=== PATIENT | male | born 1960 | race Caucasian/White ===

== ENCOUNTER 2024-06-15 15:34 | Inpatient (IN) ==
--- NOTE | 2024-06-15 15:39 | ED Triage Note ---
Date of Service June 15, 2024 Provider in Triage Author: Santa Lyons History of Present Illness This patient was briefly evaluated while in triage. An abbreviated physical exam was performed. This patient is a 63-year-old Male who presents to the ED for evaluation sent by PCP BLE pain, toe numbness, right calf muscle "shrinking" x several months Had BLE arterial ultrasounds today at [facility], and was sent in reportedly showed "occlusion" in the RLE Physical Exam GENERAL: NAD CARDIOVASCULAR: RRR RESPIRATORY: CTA Initial orders for labs and / or imaging were placed and patient was placed in the waiting area until a bed is available. Please see further documentation for the full ED course.
[2024-06-15 16:22] LABS: Basophils # (auto) 0.06 K/uL (0.00-0.20); Basophils % (auto) 0.4 %; Eosinophils # (auto) 0.32 K/uL (0.00-0.50); Eosinophils % (auto) 2.4 %; Hematocrit (blood only) 48.4 % (42.0-52.0); Hemoglobin 16.1 g/dl (14.0-18.0); Immature Granulocytes # (auto) 0.06 K/uL (0.01-0.20); Immature Granulocytes % (auto) 0.4 %; Lymphocytes # (auto) 3.27 K/uL (1.20-3.40); Lymphocytes % (auto) 24.4 %; Mean Corpuscular Hgb Conc 33.3 g/dL (32.0-36.0); Mean Corpuscular Volume 87.1 fL (80.0-100.0); Mean Platelet Volume 9.2 fL (9.4-12.4); Monocytes # (auto) 0.89 K/uL (0.11-0.59); Monocytes % (auto) 6.6 %; Neutrophils # (auto) 8.82 K/uL (1.40-6.50); Neutrophils % (auto) 65.8 %; Platelet Count 222 K/uL (130-400); RDW Coefficient of Variation 14.6 % (11.5-14.5); RDW Standard Deviation 46.5 fL (36.4-46.3); Red Blood Count 5.56 M/uL (4.70-6.10); White Blood Count 13.42 K/ul (4.8-10.8)
[2024-06-15 16:31] LABS: Albumin Globulin Ratio 1.2 (0.9-2); Albumin Level 4.7 gm/dl (3.4-5.0); BUN Creatinine Ratio 13.2 (10-20); Bilirubin,Total 0.8 mg/dl (0.2-1.0); Creatinine Clr Calc Pharmacy 105.4 ml/min; Est GFR (African American) 114.1 ml/min; Est GFR (Non-African American) 98.5 ml/min; Globulin 3.8 gm/dl (2.5-4.0); Potassium 4.1 mmol/L (3.5-5.1); Total Protein 8.5 gm/dl (6.0-8.3)
[2024-06-15 16:37] LABS: Troponin I High Sensitivity 8.1 pg/ml (0-20)
[2024-06-15 16:50] LABS: Partial Thromboplastin Time 27 Seconds (21-31); Prothrombin Time 11.2 Seconds (9.0-12.0)
--- NOTE | 2024-06-15 18:29 | Emergency Department Note ---
History of Present Illness General Chief complaint: Referred by Doctor Stated complaint: REF BY DOC, ABNORMAL US, POS BLOOD CLOT Time Seen by Provider: 06/15/24 18:09 Source: patient, RN notes reviewed and old records reviewed (Notes from his ultrasound earlier today) Mode of arrival: ambulatory Limitations: no limitations History of Present Illness Maximum Pain Intensity: 10 This patient is a 63-year-old male who comes in after being sent up from his primary doctor after having a right lower extremity arterial occlusion. He had ultrasound done in [place] which at this point, I do not have access to. He says his symptoms started in March when he was having pain in his right leg when walking in the calf. He says his calf is shrunk since then. He also noticed that he was getting some purple discoloration pain in his left great toe and now in the right great toe. They hurt when he puts the sheets on them. He feels tingly and numb in his legs at times. No systemic complaints he is a smoker. No history of blood clots. No chest pain or shortness of breath or fever chills or abdominal pain or acute back pain. He has had back surgeries in the past. Allergies Allergy/AdvReac Type Severity Reaction Status Date / Time Penicillins Allergy Unknown Verified 06/15/24 19:50 Past Med/Surg History Problem List (Updated 06/15/24 @ 23:33 by Basil Cee MD) Chronic toe pain, bilateral (Acute) Current smoker (Acute) Arterial occlusion, lower extremity (Acute) Tobacco abuse Arterial occlusion, lower extremity Leg pain, right (Acute) Social History Smoking Status: Current every day smoker Tobacco Type: Cigarettes Hx Alcohol Use: Yes Alcohol type: wine Hx Substance Use: No Preferred Language: French Communication Ability: Effective Certified Medication Aide Required: No Beliefs That Will Affect Care: None Current Living Situation: Alone Feels Safe at Home: Yes Safety Concerns: Feels Safe At This Time Assistive Devices: Glasses Immunizations: Past medical historydenies being on blood thinners or having history of blood clots. Social historyhe is a smoker. He is a retired fisherman Review of Systems A total of 10 systems reviewed and were otherwise negative Physical Exam Vital Signs Vital Signs - 24 hr 06/15/24 15:36 06/15/24 18:29 06/15/24 18:29 Temperature 36.9 C Temperature Source Temporal Artery Scan Pulse Rate 87 Pulse Rate [Apical] 70 Pulse Rate from SpO2 Sensor Pulse Rhythm Pulse Rhythm [Apical] Regular Respiratory Rate 20 19 Respiratory Effort / Characteristics Non-Labored Non-Labored Spontaneous Respiratory Depth Normal Normal Respiratory Pattern Regular Blood Pressure 145/95 H 137/97 Blood Pressure [Left Arm] 137/97 Blood Pressure Mean 111 107 Blood Pressure Mean [Left Arm] 110 Pulse Oximetry 94 99 Oxygen Delivery Method Room Air Room Air Sepsis Recent Fever Within 48 Hours No Sepsis New/Unexplained Change in Mental Status No Sepsis Action Taken by Nursing No Action Required 06/15/24 18:30 06/15/24 18:31 06/15/24 18:33 Temperature Temperature Source Pulse Rate 67 70 74 Pulse Rate [Apical] Pulse Rate from SpO2 Sensor 68 Pulse Rhythm Regular Pulse Rhythm [Apical] Respiratory Rate 15 23 Respiratory Effort / Characteristics Respiratory Depth Respiratory Pattern Blood Pressure Blood Pressure [Left Arm] Blood Pressure Mean Blood Pressure Mean [Left Arm] Pulse Oximetry 99 98 Oxygen Delivery Method Room Air Sepsis Recent Fever Within 48 Hours Sepsis New/Unexplained Change in Mental Status Sepsis Action Taken by Nursing 06/15/24 18:51 06/15/24 18:54 06/15/24 19:00 Temperature Temperature Source Pulse Rate 68 70 Pulse Rate [Apical] Pulse Rate from SpO2 Sensor 68 70 Pulse Rhythm Pulse Rhythm [Apical] Respiratory Rate 19 15 Respiratory Effort / Characteristics Respiratory Depth Respiratory Pattern Blood Pressure 134/86 Blood Pressure [Left Arm] Blood Pressure Mean 109 Blood Pressure Mean [Left Arm] Pulse Oximetry 95 97 Oxygen Delivery Method Sepsis Recent Fever Within 48 Hours Sepsis New/Unexplained Change in Mental Status Sepsis Action Taken by Nursing 06/15/24 19:12 Temperature Temperature Source Pulse Rate 63 Pulse Rate [Apical] Pulse Rate from SpO2 Sensor 64 Pulse Rhythm Pulse Rhythm [Apical] Respiratory Rate 17 Respiratory Effort / Characteristics Respiratory Depth Respiratory Pattern Blood Pressure Blood Pressure [Left Arm] Blood Pressure Mean Blood Pressure Mean [Left Arm] Pulse Oximetry 94 Oxygen Delivery Method Sepsis Recent Fever Within 48 Hours Sepsis New/Unexplained Change in Mental Status Sepsis Action Taken by Nursing General: Well developed well nourished [id number] middle-age male in no acute distress, breathing comfortably on room air. Normal speech HEENT: Normal cephalic atraumatic. Pupils are equal round and reactive to light. Extraocular movements are intact. Oropharynx is pink with moist mucous membranes. No swelling of the mouth lips or tongue. Neck: Supple with a midline trachea. No meningeal signs or stiffness, no JVD or bruits. No Stridor. Chest: Clear to auscultation bilaterally. No wheezes or rhonchi. No increased work of breathing. Heart: Regular rate and rhythm without murmurs or gallops. Abdomen: Soft nontender, nondistended without rebound guarding or rigidity. Extremities: No cyanosis clubbing or edema. No calf tenderness or assymetry. He has bluish discoloration of his great toes bilaterally. I do feel palpable pulses. His ankles bilaterally. His toes are tender to palpation on the great toes. There is no skin breakdown or gangrene. Spine/Back. Non tender to palpation. No CVA tenderness Skin: Good turgor without rashes. Neurologic exam: Cranial nerves two through 12 are intact. Motor and sensation are intact and symmetrical throughout. Course Administered Medications Heparin Sodium/Dextrose (Heparin Sodium/Dextrose) 25,000 units in 500 mls @ 28 mls/hr IV .[id number] [facility]; Protocol Stop: 07/15/24 19:59 Last Admin: 06/15/24 20:02 Dose: 1,400 units/hr, 28 mls/hr Documented By: SAMUEL Co-signed By: DIANA Nicotine (Nicotine 21 Mg/24 Hr Tdsy) 1 patch TD QAM [facility] Stop: 07/15/24 20:09 Last Admin: 06/15/24 20:55 Dose: 1 patch Documented By: DIANA Discontinued Medications Aspirin (Aspirin Chew 324 Mg) 324 mg PO NOW STA Stop: 06/15/24 19:35 Last Admin: 06/15/24 19:49 Dose: 324 mg Documented By: SAMUEL Heparin Sodium (Porcine) (Heparin Sod (Porcine) 1000 Unit/Ml) 6,000 units IV NOW ONE Stop: 06/15/24 20:01 Last Admin: 06/15/24 20:03 Dose: 6,000 units Documented By: SAMUEL Co-signed By: DIANA Heparin Sodium/Dextrose (Heparin Iv Adult Wt-Based Standard W/ Initial Bolus Protocol) 1 each IV NOW STA; Protocol Stop: 06/15/24 19:31 Last Admin: 06/15/24 20:04 Dose: 1 each Documented By: SAMUEL Ioversol (Optiray 320 125ml) 118 ml IV ONCE ONE Stop: 06/15/24 20:33 Last Admin: 06/15/24 20:32 Dose: 118 ml Documented By: NALLELY Medical Decision Making Differential Diagnosis Arterial occlusion, infection, claudication, vascular occlusion, DVT Medical Records Attestation: I reviewed the patient's medical records. Home Medications Current Medication List: was personally reviewed by me Laboratory Data Attestation: I reviewed the patient's lab results. 06/15/24 15:47 06/15/24 15:47 Lab Results 06/15/24 Range/Units 15:47 WBC 13.42 H (4.8-10.8) K/ul RBC 5.56 (4.70-6.10) M/uL Hgb 16.1 (14.0-18.0) g/dl Hct 48.4 (42.0-52.0) % MCV 87.1 (80.0-100.0) fL MCH 29.0 (25.0-34.0) pg MCHC 33.3 (32.0-36.0) g/dL RDW Std Deviation 46.5 H (36.4-46.3) fL RDW Coeff of Robert 14.6 H (11.5-14.5) % Plt Count 222 (130-400) K/uL MPV 9.2 L (9.4-12.4) fL Immature Gran % (Auto) 0.4 % Neut % (Auto) 65.8 % Lymph % (Auto) 24.4 % [place] % (Auto) 6.6 % Eos % (Auto) 2.4 % Baso % (Auto) 0.4 % Neut # (Auto) 8.82 H (1.40-6.50) K/uL Lymph # (Auto) 3.27 (1.20-3.40) K/uL [place] # (Auto) 0.89 H (0.11-0.59) K/uL Eos # (Auto) 0.32 (0.00-0.50) K/uL Baso # (Auto) 0.06 (0.00-0.20) K/uL Immature Gran # (Auto) 0.06 (0.01-0.20) K/uL ESR 73 H (0-20) mm/hr PT 11.2 (9.0-12.0) Seconds INR 1.0 (0.9-1.1) APTT 27 (21-31) Seconds PTT Ratio 1.0 Sodium 137 (136-145) mmol/L Potassium 4.1 (3.5-5.1) mmol/L Chloride 100 (98-107) mmol/L Carbon Dioxide 27 (21-32) mmol/L Anion Gap 10 (3-11) BUN 10 (6-23) mg/dl Creatinine 0.76 (0.6-1.4) mg/dl Est Cr Clr Drug Dosing 105.4 ml/min Est GFR ( Amer) 114.1 ml/min Est GFR (Non-Af Amer) 98.5 ml/min BUN/Creatinine Ratio 13.2 (10-20) Glucose 113 H (70-99(Fasting)) mg/dl Calcium 10.0 (8.6-10.3) mg/dl Total Bilirubin 0.8 (0.2-1.0) mg/dl AST 20 (13-39) U/L ALT 22 (7-52) U/L Alkaline Phosphatase 74 (34-104) U/L Troponin I High Sens 8.1 (0-20) pg/ml C-Reactive Protein 0.92 H (0-0.5) mg/dl Total Protein 8.5 H (6.0-8.3) gm/dl Albumin 4.7 (3.4-5.0) gm/dl Globulin 3.8 (2.5-4.0) gm/dl Albumin/Globulin Ratio 1.2 (0.9-2) Procalcitonin < 0.02 (0-0.5) ng/ml ECG Data Attestation: I personally reviewed and interpreted this ECG as follows: Indication: + weakness Rate (beats per minute): 81 Rhythm: + normal sinus ECG Intervals/blocks: + Normal QRS, + Normal QT and + Normal [place] ECG [place]: + Normal ECG ST segments: + Normal ST segments ECG Findings: no PACs or no PVCs Comparison ECG Date: no prior available MDM Narrative This patient comes in as described above. I saw him [place] in the critical pathway [place] to help expedite his care. According to the note there were this patient had an ultrasound today which showed arterial occlusion of the right leg. His symptoms have been going on more subacutely. His toes are bluish bilaterally on the great toes with significant pain he has had claudication type symptoms as well but this does not appear to be an acute thrombosis. His labs show a white count of 13 his EKG does not show any A-fib or arrhythmia he has normal renal function. He is a smoker. When he first presented I did not have access to his ultrasound so I have our sales secretary working on getting a copy of the report as well as the patient check in the portal. We did get a report copy of the report which showed occlusions of the right superficial femoral artery and dorsalis pedis artery and additional areas of dampened flow bilaterally. I did discuss case with Dr. Romero and he does feel the patient needs to be admitted for heparin. I did order the IV heparin bolus and standard protocol. I talked the patient at length about this. He said no recent trauma or surgery no history of GI bleed he is on no blood thinners. [facility], who will see the patient in the ER for further treatment and evaluation. Impression & Plan Arterial occlusion, lower extremity, Leg pain, right, Current smoker, Chronic toe pain, bilateral Discharge Plan Visit Data Chief Complaint: Referred by Doctor Stated Complaint: REF BY DOC, ABNORMAL US, POS BLOOD CLOT ED Provider: Basil Cee Discharge Problem: Arterial occlusion, lower extremity, Leg pain, right, Current smoker, Chronic toe pain, bilateral Patient Disposition: Admitted As Inpatient Discharge Instructions Interventions: ED Discharge Assessment Last Done: 06/15/24 21:18
--- NOTE | 2024-06-15 19:39 | History & Physical Report ---
Date of Service June 15, 2024 Assessment & Plan (1) Arterial occlusion, lower extremity: Plan: Admit to [facility] telemetry alcohol oximetry Currently stable nontoxic-appearing Presented to the ED after outpatient bilateral arterial Dopplers of the lower extremities showed occlusions of the right superficial femoral artery and dorsalis pedis artery along with significant peripheral arterial disease in the bilateral lower extremities Patient has been experienced symptoms for months, has a long history of tobacco abuse The ED spoke with Dr. Romero on-call for vascular surgery, he will evaluate the patient tomorrow morning but recommended admission at this time with initiation of heparin drip Heparin drip was initiated in the ED, gave the patient 324 mg aspirin at the time of admission Will obtain CT of the abdomen pelvis aorta runoff with con for further evaluation Will continue heparin drip and 81 mg aspirin daily tomorrow Vascular surgery consult has been placed Will make n.p.o. at midnight in case of OR tomorrow with Dr. Romero No obvious sign of infection in the bilateral lower extremities at this time, left distal great toe is erythematous and painful, will obtain x-ray of the left foot for further evaluation along with Pro-Ta/ESR/CRP but will hold antibiotics at this time as he has been afebrile Obtain chest x-ray for preoperative clearance Pain control with Tylenol and morphine, as needed Narcan for oversedation/r espiratory depression Heart healthy diet until midnight Heparin drip for DVT prophylaxis AM CBC, CMP, mag, PT/INR, hemoglobin A1c, fasting lipid panel (2) Tobacco abuse: Plan: Approximately 36-year smoking history Patient understands he needs to quit to prevent further complications Will order nicotine patch and gum for now Plan The patient was discussed with Dr. Zaidi at the time of the admission History of Present Illness Chief Complaint: Abnormal outpatient imaging Primary Care Provider: Myles Hopkinswes Ragsdales a 63-year-old male with a past medical history significant for hypertension, tobacco abuse, who presented to the [facility] ED on 06/15/2024 after outpatient bilateral arterial Dopplers revealed findings concerning for acute arterial occlusion in the right lower extremity. Patient remained stable while in the ED. The labs were significant for leukocytosis of 13 with neutrophil predominance of 8. Outpatient bilateral lower extremity arterial Dopplers obtained today (06/15/2024) were read as occlusions of the right superficial femoral artery and dorsalis pedis artery and additional areas of dampened flow bilaterally as described. The need for CTA or conventional angiography should be determined clinically. The ED did speak with Dr. Romero who confirmed that he will see the patient tomorrow and is available for surgical intervention if needed. Dr. Romero recommended starting the patient on anticoagulation overnight until he can evaluate him tomorrow. Prior to admission the patient was ordered to start on heparin drip. Patient was sitting in bed in no acute distress at time of exam. Explains that he has been experiencing bilateral lower extremity paresthesias, pain, and significant pain/cramping with ambulation worsened right lower extremity than left over the past 3 to 6 months. States that his right calf has become significantly smaller than the left over this time as well. Will experience numbness and tingling in the bilateral feet/toes at times. Had been using Tylenol for the pain without improvement. Has smoked approximately a pack per day of cigarettes for the past 36 years, drinks 2 to 3 glasses of wine approximately 3 times a week, denies recreational drug use. States that he was told his cholesterol is high recently but has not started a statin yet. When asked about any prescription medications he states that he is currently not on any as he does not like to take medication. However, he states he will begin medications to prevent further complications of vascular disease. Pain is currently under control at rest. She understands that he may require surgical intervention and that we will obtain additional imaging tonight for further assessment. Denies a history of major bleeding and states that his only medication allergies are to penicillins. He is a full code would want his sister to make medical decisions for him if he cannot make them himself. Please refer to Dr. Zaidi's attestation for any changes to the treatment plan Allergies Allergy/AdvReac Type Severity Reaction Status Date / Time Penicillins Allergy Unknown Verified 06/15/24 19:50 Past Med/Surg History Problem List (Updated 06/15/24 @ 23:33 by Basil Cee MD) Chronic toe pain, bilateral (Acute) Current smoker (Acute) Arterial occlusion, lower extremity (Acute) Tobacco abuse Arterial occlusion, lower extremity Leg pain, right (Acute) Social History Smoking Status: Current every day smoker Tobacco Type: Cigarettes Hx Alcohol Use: Yes Alcohol type: wine Hx Substance Use: No Preferred Language: Malaysian Communication Ability: Effective [place] Required: No Beliefs That Will Affect Care: None Current Living Situation: Alone Feels Safe at Home: Yes Safety Concerns: Feels Safe At This Time Assistive Devices: Glasses Physical Exam Physical Exam: Physical Exam: General: In no acute distress, stated age, nontoxic-appearing HEENT: Normocephalic, atraumatic, no scleral icterus, pupils around round, symmetrical, and reactive to light, moist mucus membranes, poor dentition, trachea midline, no thyromegaly Chest/Pulm: No respiratory distress, symmetrical chest expansion, clear breath sounds throughout Cardiac: RRR, no murmurs noted Abdomen: Negative for ascites and bruising, normoactive bowel sounds, soft, non-tender to palpation throughout Musculoskeletal: Without signs of acute trauma, upper and lower extremities with full ROM, no atrophy, spasticity, or flaccidity > Right calf is approximately half the size of the left due to chronic arterial insufficiency Extremities: Patient with intact left dorsalis pedis and posterior tibial pulses, absent right dorsalis pedis pulse with faint posterior tibial pulse Skin: Skin in the bilateral lower extremities is currently warm without significant pallor > Left great toe with mild erythema on the distal inferior aspect without obvious sign of infection Neuro: Alert and oriented to person, place, month, year, and president, no focal defects, decreased sensation in the bilateral lower extremities Psych: No acute distress, calm and cooperative during the exam Results & Data Results & Data Vital Signs (Past 12 Hours) Vital Signs Temp Pulse Pulse Resp BP BP Pulse Ox 06/15/24 19:12 63 17 94 06/15/24 19:00 134/86 06/15/24 18:54 70 15 97 06/15/24 18:51 68 19 95 06/15/24 18:33 74 23 98 06/15/24 18:31 70 06/15/24 18:30 67 15 99 06/15/24 18:29 137/97 06/15/24 18:29 70 19 137/97 99 06/15/24 15:36 36.9 C 87 20 145/95 H 94 O2 Del Method 06/15/24 19:12 06/15/24 19:00 06/15/24 18:54 06/15/24 18:51 09/18/24 18:33 06/15/24 18:31 06/15/24 18:30 Room Air 06/15/24 18:29 06/15/24 18:29 Room Air 06/15/24 15:36 Room Air Laboratory Results Abnormal lab results 06/15/24 Range/Units 15:47 WBC 13.42 H (4.8-10.8) K/ul RDW Std Deviation 46.5 H (36.4-46.3) fL RDW Coeff of Robert 14.6 H (11.5-14.5) % MPV 9.2 L (9.4-12.4) fL Neut # (Auto) 8.82 H (1.40-6.50) K/uL [place] # (Auto) 0.89 H (0.11-0.59) K/uL Glucose 113 H (70-99(Fasting)) mg/dl Total Protein 8.5 H (6.0-8.3) gm/dl ECG Additional Comments: Normal sinus rhythm without acute ST segment or T wave changes Code Status & VTE Plan Code Status Full code VTE Prophylaxis Plan VTE Prophylaxis will be ordered: Yes Supervising Physician Co-Signing Physician Notes Attending addendum: I have physically seen this patient, have supervised the STAR's activities, and agree with the H&P unless as otherwise noted. Assessment and Plan: Arterial occlusions right lower extremity SFA and dorsalis pedis arteries/peripheral arterial disease and bilateral lower extremities- Patient presented to the emergency department after outpatient testing at an outside hospital revealed the above diagnoses. Patient has a long history of tobacco use Heparin drip standard dosing with bolus per protocol ordered Start aspirin 81 mg daily Order aortic study with runoff Consult vascular surgery Dr. Romero Admit to monitored bed Start empiric atorvastatin 40 mg daily Repeat CBC with differential, chemistry profile, magnesium, PT/INR/PTT, hemoglobin A1c and fasting lipid panel Tobacco abuse- Cessation counseling Nicotine patch PG Care Time/CCT Total # of Minutes Spent Total Time Spent with Patient: Total time spent is greater than 50% in coordination of care (as documented) at patient's floor/unit and/or counseling patient: [place] [address] INT INP/OBS CARE 3/75MIN Patient Type New Medical Decision Making High Complexity Diagnoses Arterial occlusion, lower extremity I70.209 Tobacco abuse Z72.0
[2024-06-15] MEDS ORDERED: HEPARIN SOD (PORCINE) 1000 UNIT/ML IV ONE (19:46)
[2024-06-15] MEDS: ASPIRIN CHEW 324 MG PO STA (19:49)
[2024-06-15] MEDS: HEPARIN SODIUM/DEXTROSE 25,000 UNITS/500 ML BAG IV SCH (20:02)
[2024-06-15] MEDS: HEPARIN SOD (PORCINE) 1000 UNIT/ML IV ONE (20:03)
[2024-06-15] MEDS: Heparin IV Adult Wt-Based Standard w/ INITIAL Bolus Protocol IV STA (20:04)
[2024-06-15] MEDS ORDERED: MoRPHine SULFATE 2 MG/ML CARP IV PRN (20:06)
[2024-06-15] MEDS ORDERED: ACETAMINOPHEN 325 MG TAB PO PRN (20:06)
[2024-06-15] MEDS ORDERED: NICOTINE POLACRILEX 2 MG GUM MT PRN (20:08)
[2024-06-15] MEDS ORDERED: NALOXONE HCL 0.4 MG/1 ML VIAL/CARP IV PRN (20:20)
[2024-06-15] MEDS: OPTIRAY 320 125ml IV ONE (20:32)
[2024-06-15] MEDS: NICOTINE 21 MG/24 HR TDSY TD SCH (20:55)
--- NOTE | 2024-06-15 21:27 | CT Scan Report ---
Exam(s): CTA RUNOFF W/WO (A/P + Pascual Lower Ext) EXAM: CT Angiography Abdomen and Pelvis With Runoff to the Lower Extremities Without and With Intravenous Contrast CLINICAL HISTORY: Reason for exam: RLE artery occlusion on outpatient arterial dopp. TECHNIQUE: Axial computed tomographic angiography images of the abdomen, pelvis and lower extremities without and with intravenous contrast. CTDI is 16. 62 mGy and DLP is 1834.63 mGy-cm. Automated exposure control was utilized for the study. A dose lowering technique was utilized adhering to the principles of ALARA. MIP reconstructed images were created and reviewed. COMPARISON: No relevant prior studies available. FINDINGS: VASCULATURE: Aorta: No acute findings. No abdominal aortic aneurysm. No dissection. Celiac trunk and mesenteric arteries: No acute findings. No occlusion or significant stenosis. Renal arteries: No acute findings. No occlusion or significant stenosis. Right iliac arteries: No acute findings. No occlusion or significant stenosis. Right femoral/popliteal arteries: Occluded right SFA. Occluded right popliteal artery. Right calf/foot arteries: Occluded anterior tibial artery on the right. Two-vessel runoff via the posterior tibial artery and peroneal artery. Left iliac arteries: No acute findings. No occlusion or significant stenosis. Left femoral/popliteal arteries: Mild stenosis throughout the left SFA. Mild stenosis within the left popliteal artery. Left calf/foot arteries: No acute findings. No occlusion or significant stenosis. Lung bases: Unremarkable. No mass. No consolidation. ABDOMEN: Liver: Unremarkable. No mass. Gallbladder and bile ducts: Unremarkable. No calcified stones. No ductal dilation. Pancreas: Unremarkable. No ductal dilation. No mass. Spleen: Unremarkable. No splenomegaly. Adrenals: Unremarkable. No mass. Kidneys and ureters: Unremarkable. No obstructing stones. No hydronephrosis. No solid mass. Stomach and bowel: Unremarkable. No obstruction. No mucosal thickening. PELVIS: Appendix: No findings to suggest acute appendicitis. Bladder: Unremarkable. No stones. No mass. Reproductive: Unremarkable as visualized. ABDOMEN, PELVIS and LOWER EXTREMITIES: Intraperitoneal space: Unremarkable. No significant fluid collection. No free air. Bones/joints: No acute fracture. No dislocation. Soft tissues: Unremarkable. Lymph nodes: Unremarkable. No enlarged lymph nodes. IMPRESSION: 1. Occluded right SFA and popliteal artery. 2. Two-vessel runoff in the right lower extremity. 3. No flow-limiting stenosis or arterial occlusion in the left lower extremity. Electronically signed by: Jacob Boss MD 06/15/24 21:26 PM
[2024-06-15 23:25] LABS: C Reactive Protein 0.92 mg/dl (0-0.5)
[2024-06-16 02:25] LABS: ANTI-Xa, UFH(UnfractionatedHep 0.41 IU/ml (0.3-0.7)
[2024-06-16 05:56] LABS: Basophils # (auto) 0.08 K/uL (0.00-0.20); Basophils % (auto) 0.8 %; Eosinophils # (auto) 0.62 K/uL (0.00-0.50); Eosinophils % (auto) 5.8 %; Hematocrit (blood only) 43.7 % (42.0-52.0); Hemoglobin 14.7 g/dl (14.0-18.0); Immature Granulocytes # (auto) 0.03 K/uL (0.01-0.20); Immature Granulocytes % (auto) 0.3 %; Lymphocytes # (auto) 3.38 K/uL (1.20-3.40); Lymphocytes % (auto) 31.9 %; Mean Corpuscular Hemoglobin 28.9 pg (25.0-34.0); Mean Corpuscular Hgb Conc 33.6 g/dL (32.0-36.0); Mean Corpuscular Volume 85.9 fL (80.0-100.0); Mean Platelet Volume 9.4 fL (9.4-12.4); Monocytes # (auto) 0.77 K/uL (0.11-0.59); Monocytes % (auto) 7.3 %; Neutrophils # (auto) 5.73 K/uL (1.40-6.50); Neutrophils % (auto) 53.9 %; Platelet Count 207 K/uL (130-400); RDW Coefficient of Variation 14.4 % (11.5-14.5); RDW Standard Deviation 45.4 fL (36.4-46.3); Red Blood Count 5.09 M/uL (4.70-6.10); White Blood Count 10.61 K/ul (4.8-10.8)
[2024-06-16 06:10] LABS: Albumin Globulin Ratio 1.2 (0.9-2); Albumin Level 4.1 gm/dl (3.4-5.0); BUN Creatinine Ratio 16.7 (10-20); Bilirubin,Total 0.6 mg/dl (0.2-1.0); Calcium 9.5 mg/dl (8.6-10.3); Chol HDL Ratio 7.4 (0-5); Creatinine Clr Calc Pharmacy 111.2 ml/min; Est GFR (African American) 116.7 ml/min; Est GFR (Non-African American) 100.7 ml/min; Globulin 3.3 gm/dl (2.5-4.0); Magnesium 2.2 mg/dl (1.7-2.4); Potassium 4.1 mmol/L (3.5-5.1); Total Protein 7.4 gm/dl (6.0-8.3)
[2024-06-16 06:19] LABS: ANTI-Xa, UFH(UnfractionatedHep 0.41 IU/ml (0.3-0.7)
--- NOTE | 2024-06-16 06:46 | Electrocardiogram Report ---
Test Reason : Blood Pressure : */* mmHG Vent. Rate : 81 BPM Atrial Rate : 81 BPM P-R Int : 162 ms QRS Dur : 98 ms QT Int : 372 ms P-R-T Axes : 55 -4 57 degrees QTcB Int : 432 ms Poor data quality, interpretation may be adversely affected Normal sinus rhythm Possible Lateral infarct , age undetermined Abnormal ECG No previous ECGs available Confirmed by Jean Avila ([id number]) on 06/16/2024 6:45:30 AM Referred By: Confirmed By: Jean Avila
--- NOTE | 2024-06-16 06:53 | XRay Report ---
XR foot LT min 3V routine CLINICAL HISTORY: possible left great toe infection COMPARISON: CTA with runoff performed earlier today. FINDINGS: Alignment of the left foot is anatomic. There is no acute fracture. No areas of bony erosi on are identified. There are no osseous lesions. Mild degenerative changes within several articulatio ns of the left foot are present. IMPRESSION: No fractures or evidence for acute osteomyelitis within the left foot. ACT 112: Negative or not required by law. Electronically signed by: Jacob Barrera M.D. 06/16/2024 6:52 AM
[2024-06-16 07:19] LABS: Estimated Average Glucose 105 mg/dl; Hemoglobin A1C 5.3 % (4.5-5.6)
--- NOTE | 2024-06-16 07:26 | XRay Report ---
XR chest 1V portable HISTORY: 63 years-old Male pre-op clearance COMPARISON: None TECHNIQUE: AP view of the chest FINDINGS: Cardiomediastinal and hilar silhouettes are within normal limits. No pneumothorax, pleural effusion, airspace consolidation or pulmonary edema. Degenerative changes of the shoulders and spine. IMPRESSION: No acute process of the chest. ACT 112: Negative or not required by law. The above report was generated using voice recognition software. It may contain grammatical, syntax o r spelling errors. Electronically signed by: Nicolas Proctor M.D. 06/16/2024 7:25 AM
[2024-06-16] MEDS: ASPIRIN 81 MG ECTAB PO SCH (09:06)
[2024-06-16] MEDS: ATORVASTATIN 40 MG TAB PO SCH (09:06)
--- NOTE | 2024-06-16 11:40 | Ultrasound Report ---
US venous mapping right lower extremity CLINICAL HISTORY: pre op bypass COMPARISON STUDY: None. FINDINGS: The right common femoral vein and greater saphenous vein appear patent. The right greater s aphenous vein measures a maximum diameter of 5 mm and a minimum diameter of 2 mm at the distal calf. The lesser saphenous vein was not visualized due to multiple collaterals from the popliteal fossa ext ending into the calf. IMPRESSION: Patent right greater saphenous vein as described above. ACT 112: Negative or not required by law. Electronically signed by: Magdy Lee M.D. 06/16/2024 11:39 AM
--- NOTE | 2024-06-16 12:35 | Hospitalist Progress Note ---
Date of Service June 16, 2024 Assessment & Plan (1) Arterial occlusion, lower extremity: (2) PAD (peripheral artery disease): (3) Hyperlipidemia: (4) Tobacco use disorder: Plan 63-year-old male with past medical history of tobacco use disorder who presented to [facility] ED on 06/15/2024 after outpatient bilateral artery Dopplers showed findings concerning for acute arterial occlusion in the right lower extremity. Patient has been experiencing intermittent claudication symptoms for over 2 months. #Right SFA and popliteal artery occlusion #Peripheral arterial disease #Hyperlipidemia Vascular surgery Dr. Romero has been consulted Awaiting vascular surgery consult and recommendations Continue heparin infusion and aspirin 81 mg daily per vascular surgery recommendations CTA showed occluded right SFA and popliteal artery in the right lower extremity and no flow-limiting stenosis or arterial occlusion in the left lower extremity Total cholesterol is 297, LDL is 219, triglycerides 190 A1c is 5.3 Patient has been started on atorvastatin 40 mg p.o. nightly Risks/benefits/side effects of atorvastatin discussed with patient Monitor LFTs Await vascular surgery recommendations #Tobacco use disorder Smoking cessation counseling provided Continue nicotine replacement patch CODE STATUS: Full code DVT prophylaxis: Patient on heparin infusion Care plan discussed with patient, nursing staff Admission and Anticipated Discharge Date Admission Date: June 15, 2024 Subjective Patient seen and examined H&P reviewed Patient denies any headache, dizziness, lightheadedness, chest pain, shortness of breath, nausea, vomiting, diarrhea, abdominal pain, palpitations, dysuria, fever, chills. Pain in his right lower extremity has improved but worsens on ambulation He is awaiting vascular surgery consult and recommendations Social history: Patient is retired, smokes 1 pack of cigarettes per day, occasional alcohol use. Review of Systems Review of Systems: As per HPI Physical Exam Physical Exam: General: No acute distress, speaking in full sentences Psych: Awake and alert HEENT: Anicteric sclera, moist oral mucosa CVS: Regular rate and rhythm Lungs: Bilateral air entry, no wheezing noted Abdomen: Soft, nontender, no rebound, no guarding Ext: No lower extremity edema, no calf tenderness, both feet are warm to touch Neuro: No focal motor deficits noted Results & Data Results & Data Vital Signs (Past 12 Hours) Vital Signs Temp Pulse Pulse Resp BP Pulse Ox O2 Del Method 06/16/24 11:29 36.6 C 67 16 128/82 96 Room Air 06/16/24 08:26 36.6 C 84 18 150/92 H 97 Room Air 06/16/24 07:22 60 06/16/24 02:37 36.8 C 64 16 112/77 95 Room Air Laboratory Results Laboratory Results - last 24 hr 06/15/24 06/16/24 06/16/24 15:47 01:47 05:35 WBC 13.42 H 10.61 RBC 5.56 5.09 Hgb 16.1 14.7 Hct 48.4 43.7 MCV 87.1 85.9 MCH 29.0 28.9 MCHC 33.3 33.6 RDW Std Deviation 46.5 H 45.4 RDW Coeff of Robert 14.6 H 14.4 Plt Count 222 207 MPV 9.2 L 9.4 Immature Gran % (Auto) 0.4 0.3 Neut % (Auto) 65.8 53.9 Lymph % (Auto) 24.4 31.9 Meade % (Auto) 6.6 7.3 Eos % (Auto) 2.4 5.8 Baso % (Auto) 0.4 0.8 Neut # (Auto) 8.82 H 5.73 Lymph # (Auto) 3.27 3.38 Meade # (Auto) 0.89 H 0.77 H Eos # (Auto) 0.32 0.62 H Baso # (Auto) 0.06 0.08 Immature Gran # (Auto) 0.06 0.03 ESR 73 H PT 11.2 INR 1.0 APTT 27 PTT Ratio 1.0 Heparin Anti-Xa, Unfract 0.41 0.41 Sodium 137 138 Potassium 4.1 4.1 Chloride 100 104 Carbon Dioxide 27 26 Anion Gap 10 8 BUN 10 12 Creatinine 0.76 0.72 Est Cr Clr Drug Dosing 105.4 111.2 Est GFR ( Amer) 114.1 116.7 Est GFR (Non-Af Amer) 98.5 100.7 BUN/Creatinine Ratio 13.2 16.7 Glucose 113 H 88 Estimat Average Glucose 105 Hemoglobin A1c 5.3 Calcium 10.0 9.5 Magnesium 2.2 Total Bilirubin 0.8 0.6 AST 20 18 ALT 22 17 Alkaline Phosphatase 74 65 Troponin I High Sens 8.1 C-Reactive Protein 0.92 H Total Protein 8.5 H 7.4 Albumin 4.7 4.1 Globulin 3.8 3.3 Albumin/Globulin Ratio 1.2 1.2 Triglycerides 190 H Cholesterol 297 H LDL Cholesterol, Calc 219 VLDL Cholesterol, Calc 38 H HDL Cholesterol 40 Cholesterol/HDL Ratio 7.4 H Procalcitonin < 0.02 Diagnostic Findings Aorta w/Runoff CTA 06/15/24 20:02 Exam(s): CTA RUNOFF W/WO (A/P + Pascual Lower Ext) EXAM: CT Angiography Abdomen and Pelvis With Runoff to the Lower Extremities Without and With Intravenous Contrast CLINICAL HISTORY: Reason for exam: RLE artery occlusion on outpatient arterial dopp. TECHNIQUE: Axial computed tomographic angiography images of the abdomen, pelvis and lower extremities without and with intravenous contrast. CTDI is 16. 62 mGy and DLP is 1834.63 mGy-cm. Automated exposure control was utilized for the study. A dose lowering technique was utilized adhering to the principles of ALARA. MIP reconstructed images were created and reviewed. COMPARISON: No relevant prior studies available. FINDINGS: VASCULATURE: Aorta: No acute findings. No abdominal aortic aneurysm. No dissection. Celiac trunk and mesenteric arteries: No acute findings. No occlusion or significant stenosis. Renal arteries: No acute findings. No occlusion or significant stenosis. Right iliac arteries: No acute findings. No occlusion or significant stenosis. Right femoral/popliteal arteries: Occluded right SFA. Occluded right popliteal artery. Right calf/foot arteries: Occluded anterior tibial artery on the right. Two-vessel runoff via the posterior tibial artery and peroneal artery. Left iliac arteries: No acute findings. No occlusion or significant stenosis. Left femoral/popliteal arteries: Mild stenosis throughout the left SFA. Mild stenosis within the left popliteal artery. Left calf/foot arteries: No acute findings. No occlusion or significant stenosis. Lung bases: Unremarkable. No mass. No consolidation. ABDOMEN: Liver: Unremarkable. No mass. Gallbladder and bile ducts: Unremarkable. No calcified stones. No ductal dilation. Pancreas: Unremarkable. No ductal dilation. No mass. Spleen: Unremarkable. No splenomegaly. Adrenals: Unremarkable. No mass. Kidneys and ureters: Unremarkable. No obstructing stones. No hydronephrosis. No solid mass. Stomach and bowel: Unremarkable. No obstruction. No mucosal thickening. PELVIS: Appendix: No findings to suggest acute appendicitis. Bladder: Unremarkable. No stones. No mass. Reproductive: Unremarkable as visualized. ABDOMEN, PELVIS and LOWER EXTREMITIES: Intraperitoneal space: Unremarkable. No significant fluid collection. No free air. Bones/joints: No acute fracture. No dislocation. Soft tissues: Unremarkable. Lymph nodes: Unremarkable. No enlarged lymph nodes. IMPRESSION: 1. Occluded right SFA and popliteal artery. 2. Two-vessel runoff in the right lower extremity. 3. No flow-limiting stenosis or arterial occlusion in the left lower extremity. Electronically signed by: Jacob Boss MD 06/15/24 21:26 PM Foot X-Ray 06/15/24 20:02 XR foot LT min 3V routine CLINICAL HISTORY: possible left great toe infection COMPARISON: CTA with runoff performed earlier today. FINDINGS: Alignment of the left foot is anatomic. There is no acute fracture. No areas of bony erosion are identified. There are no osseous lesions. Mild degenerative changes within several articulations of the left foot are present. IMPRESSION: No fractures or evidence for acute osteomyelitis within the left foot. ACT 112: Negative or not required by law. Electronically signed by: Jacob Barrera M.D. 06/16/2024 6:52 AM Chest X-Ray 06/15/24 20:06 XR chest 1V portable HISTORY: 63 years-old Male pre-op clearance COMPARISON: None TECHNIQUE: AP view of the chest FINDINGS: Cardiomediastinal and hilar silhouettes are within normal limits. No pneumothorax, pleural effusion, airspace consolidation or pulmonary edema. Degenerative changes of the shoulders and spine. IMPRESSION: No acute process of the chest. ACT 112: Negative or not required by law. The above report was generated using voice recognition software. It may contain grammatical, syntax or spelling errors. Electronically signed by: Nicolas Proctor M.D. 06/16/2024 7:25 AM Extremity Venous Study 06/16/24 07:40 US venous mapping right lower extremity CLINICAL HISTORY: pre op bypass COMPARISON STUDY: None. FINDINGS: The right common femoral vein and greater saphenous vein appear patent. The right greater saphenous vein measures a maximum diameter of 5 mm and a minimum diameter of 2 mm at the distal calf. The lesser saphenous vein was not visualized due to multiple collaterals from the popliteal fossa extending into the calf. IMPRESSION: Patent right greater saphenous vein as described above. ACT 112: Negative or not required by law. Electronically signed by: Magdy Lee M.D. 06/16/2024 11:39 AM PG Care Time/CCT Total # of Minutes Spent Total Time Spent with Patient: Total time spent is greater than 50% in coordination of care (as documented) at patient's floor/unit and/or counseling patient: Coding Level of Care Code 04062 SUB INP/OBS CARE 3/50MIN Diagnoses Arterial occlusion, lower extremity I70.209 PAD (peripheral artery disease) I73.9 Mixed hyperlipidemia E78.2 Hyperlipidemia type: mixed hyperlipidemia Tobacco use disorder F17.200 (3) Hyperlipidemia Hyperlipidemia type: mixed hyperlipidemia Qualified Code(s): E78.2 - Mixed hyperlipidemia
--- NOTE | 2024-06-16 13:03 | XCELERA ---
[id number]
[2024-06-16] MEDS ORDERED: SODIUM CHLORIDE 0.9% 250 ML IV PRN (16:06)
--- NOTE | 2024-06-16 16:20 | Consultation ---
Date of Consultation June 16, 2024 Assessment & Plan (1) Arterial occlusion, lower extremity: This patient has significant limiting claudication of the right lower extremity with borderline rest pain. He also has discoloration of the left great toe with good palpable pulses. He has normal hair growth to both lower extremities. He does have a right sfao and pop artery occl. Would recommend a right fem to post tib bypass at this time. I have discussed the risks options and benefits of the procedure with the patient. The patient understands the risks options and benefits and agrees to the procedure. With both lower extremities showing signs of arterial occlusion (large vessel on the right and small vessel on the left) will do a workup for a source of possible embolization to his lower extremities. Thank you very much for letting us participate in the care of this patient. History of Present Illness Reason for Consultation: Right leg ischemia Attending Physician: Alireza Biggs MD History of Present Illness This is a 63yo male who started having claudication in the right lower extremity this January. It has been progressively getting worse to a point where he only can walk very short distances before his right calf cramp up and he has to stop. Pain is relieved after just a few minutes. Denies any ulcerations of his foot but does complain of slight numbness and coldness of the right foot. He also complains of pain in his left great toe but no claudication. He also has a history of lower back problems which his says has gotten better. He denies any arrhythmias or cardiac disease. He is a current smoker and has hyperlipidemia. Allergies Allergy/AdvReac Type Severity Reaction Status Date / Time Penicillins Allergy Unknown Verified 06/15/24 19:50 Home Medications Medication Instructions Recorded Confirmed Type citalopram 10 mg tablet 10 mg PO DAILY 06/16/24 06/16/24 History lisinopril 5 mg tablet 5 mg PO DAILY 06/16/24 06/16/24 History Patient History Social History Smoking Status: Current every day smoker Tobacco Type: Cigarettes Hx Alcohol Use: Yes Alcohol type: wine Hx Substance Use: No Preferred Language: Mohawk Communication Ability: Effective Physician Interventional Cardiologist Required: No Beliefs That Will Affect Care: None Current Living Situation: Alone Feels Safe at Home: Yes Safety Concerns: Feels Safe At This Time Assistive Devices: None Review of Systems Review of Systems: All systems reviewed & are unremarkable except as noted in HPI & below Physical Exam Constitutional: WD/WN, vitals as above Respiratory: normal respiratory effort, lungs clear to auscultation Cardiovascular: RRR, no murmur, no edema Vessels: posterior tibial pulses present (palp on left, none on right) and dorsalis pedis pulses present (palp on left, none on right) Extremities: + abnormal capillary refill (markedly decreased on right) Gastrointestinal (Abdomen): normal bowel sounds, soft, nontender, no hepatosplenomegaly Skin: + pallor (right foot); no hair thinning (normal hair growth of feet) Right foot slightly pale. Left foot normal color except for left great toe which is tender to touch. Neurologic: CN's II-XI intact bilaterally and moves all extremities Psychiatric: A+Ox3, euthymic affect Results & Data Vital Signs (Past 12 Hours) Vital Signs Temp Pulse Pulse Resp BP BP Pulse Ox 06/16/24 16:05 36.7 C 61 18 116/78 96 06/16/24 15:16 69 06/16/24 11:29 36.6 C 67 16 128/82 96 06/16/24 08:26 36.6 C 84 18 150/92 H 97 06/16/24 07:22 60 O2 Del Method 06/16/24 16:05 Room Air 06/16/24 15:16 06/16/24 11:29 Room Air 06/16/24 08:26 Room Air 06/16/24 07:22
[2024-06-16] MEDS: LACTATED RINGER'S 1,000 ML IV SCH (23:32)
[2024-06-17 06:07] LABS: Albumin Globulin Ratio 1.3 (0.9-2); Albumin Level 3.9 gm/dl (3.4-5.0); BUN Creatinine Ratio 14.3 (10-20); Bilirubin,Total 0.7 mg/dl (0.2-1.0); Calcium 9.4 mg/dl (8.6-10.3); Creatinine Clr Calc Pharmacy 114.4 ml/min; Est GFR (African American) 118.1 ml/min; Est GFR (Non-African American) 101.9 ml/min; Globulin 3.1 gm/dl (2.5-4.0); Magnesium 1.9 mg/dl (1.7-2.4); Potassium 4.1 mmol/L (3.5-5.1)
[2024-06-17] MEDS ORDERED: ROCURONIUM BROMIDE 10 MG/ML 5 ML VIAL IV ONE ×6 (07:11→15:55)
[2024-06-17] MEDS ORDERED: ONDANSETRON INJ 2 MG/ML 2 ML VIAL ONE (07:11)
[2024-06-17] MEDS ORDERED: MIDAZOLAM HCL 1 MG/ML 2ML VIAL ONE (07:11)
[2024-06-17] MEDS ORDERED: fentaNYL citrate PF 100 MCG/2 ML VIAL ONE ×4 (07:11→16:58)
[2024-06-17] MEDS ORDERED: DEXAMETHASONE SOD INJ 4 MG/ML VIAL ONE (07:11)
[2024-06-17] MEDS ORDERED: PROPOFOL IV EMULSION 10 MG/ML 20 ML VIAL IV ONE (07:11)
[2024-06-17] MEDS ORDERED: SUGAMMADEX SODIUM 200 MG/2 ML VIAL IV ONE ×2 (07:12→12:58)
--- NOTE | 2024-06-17 08:59 | Hospitalist Progress Note ---
Date of Service June 17, 2024 Assessment & Plan (1) Arterial occlusion, lower extremity: (2) PAD (peripheral artery disease): (3) Hyperlipidemia: (4) Tobacco use disorder: Plan 63-year-old male with past medical history of tobacco use disorder who presented to [facility] ED on 06/15/2024 after outpatient bilateral artery Dopplers showed findings concerning for acute arterial occlusion in the right lower extremity. Patient has been experiencing intermittent claudication symptoms for over 2 months. #Right SFA and popliteal artery occlusion #Peripheral arterial disease #Hyperlipidemia Vascular surgery Dr. Romero saw the patient CTA showed occluded right SFA and popliteal artery in the right lower extremity and no flow-limiting stenosis or arterial occlusion in the left lower extremity Total cholesterol is 297, LDL is 219, triglycerides 190 A1c is 5.3 Continue atorvastatin 40 mg p.o. nightly Risks/benefits/side effects of atorvastatin discussed with patient Patient was started on heparin infusion on admission which has now been held for vascular surgery today He was also started on aspirin 81 mg daily which has been held today for vascular surgery today Postop care per vascular surgery Await further vascular surgery recommendations #Tobacco use disorder Smoking cessation counseling provided Continue nicotine replacement patch CODE STATUS: Full code DVT prophylaxis: Patient on heparin infusion which has now been stopped for surgery today Care plan discussed with patient, nursing staff Admission and Anticipated Discharge Date Admission Date: June 15, 2024 Subjective Patient seen and examined He is agreeable to taking statin at this point and understands the risks, benefits and side effects He is currently n.p.o. and awaiting surgery with vascular surgery today He denies any chest pain, shortness of breath, nausea, vomiting, diarrhea or abdominal pain He denies any fever or chills Review of Systems Review of Systems: As per HPI Physical Exam Physical Exam: General: No acute distress, speaking in full sentences Psych: Awake and alert HEENT: Anicteric sclera, moist oral mucosa CVS: Regular rate and rhythm Lungs: Bilateral air entry, no wheezing noted Abdomen: Soft, nontender, no rebound, no guarding Ext: No lower extremity edema, no calf tenderness, both feet are warm to touch Neuro: No focal motor deficits noted Results & Data Results & Data Vital Signs (Past 12 Hours) Vital Signs Temp Pulse Pulse Resp BP BP Pulse Ox 06/17/24 08:37 36.6 C 59 L 18 131/89 98 06/17/24 02:23 36.7 C 58 L 18 138/89 97 06/16/24 22:46 36.9 C 66 18 123/78 93 06/16/24 21:51 64 O2 Del Method 06/17/24 08:37 Room Air 06/17/24 02:23 Room Air 06/16/24 22:46 Room Air 06/16/24 21:51 Laboratory Results Laboratory Results - last 24 hr 06/16/24 06/17/24 15:47 05:22 Sodium 138 Potassium 4.1 Chloride 104 Carbon Dioxide 27 Anion Gap 7 BUN 10 Creatinine 0.70 Est Cr Clr Drug Dosing 114.4 Est GFR ( Amer) 118.1 Est GFR (Non-Af Amer) 101.9 BUN/Creatinine Ratio 14.3 Glucose 106 H Calcium 9.4 Magnesium 1.9 Total Bilirubin 0.7 AST 14 ALT 15 Alkaline Phosphatase 62 Total Protein 7.0 Albumin 3.9 Globulin 3.1 Albumin/Globulin Ratio 1.3 Blood Type B Positive Blood Type Recheck B Positive Antibody Screen NEGATIVE Crossmatch See Detail PG Care Time/CCT Total # of Minutes Spent Total Time Spent with Patient: Total time spent is greater than 50% in coordination of care (as documented) at patient's floor/unit and/or counseling patient: Coding Level of Care Code 33388 SUB INP/OBS CARE 2/35MIN Diagnoses Arterial occlusion, lower extremity I70.209 PAD (peripheral artery disease) I73.9 Mixed hyperlipidemia E78.2 Hyperlipidemia type: mixed hyperlipidemia Tobacco use disorder F17.200 (3) Hyperlipidemia Hyperlipidemia type: mixed hyperlipidemia Qualified Code(s): E78.2 - Mixed hyperlipidemia
--- NOTE | 2024-06-17 09:00 | History & Physical Bridge Note ---
Date of Service June 17, 2024 History & Physical Bridge Note I have examined the patient, reviewed the History & Physical and in the interval since the performance of the History & Physical I have noted the following changes of clinical significance: no changes noted
--- NOTE | 2024-06-17 09:53 | Anesthesiology Consultation ---
Date of Service June 17, 2024 Assessment & Plan Chart Review Chart Review: Acceptable Risk for Surgery and Patient NOT seen in Pre Admission Testing Consults Requested none ASA ASA4 Proposed Anesthesia Anesthesia Type: General Anesthesia Line Insertion: Arterial line Risk / Benefits Reviewed With: PT / POA / Parent / Guardian, Accepts Plan and Informed Consent Obtained History Surgery Operation Date: 06/17/24 10:20 Proposed Procedures p Right Femoral to Posterior Tibial Bypass - Juan J Romero MD Height/Weight Height: 5 ft 10 in Weight: 85.5 kg Allergies Allergy/AdvReac Type Severity Reaction Status Date / Time Penicillins Allergy Unknown Verified 06/15/24 19:50 Medications Home Medications Medication Instructions Recorded Confirmed Last Taken citalopram 10 mg tablet 10 mg PO DAILY 06/16/24 06/16/24 Unknown lisinopril 5 mg tablet 5 mg PO DAILY 06/16/24 06/16/24 Unknown Active Medications Generic Name Dose Route Start Last Admin Trade Name Freq PRN Reason Stop Dose Admin Aspirin 81 mg 06/16/24 09:00 06/17/24 08:17 Aspirin 81 Mg Ectab PO 07/16/24 08:59 Not Given DAILY BEST Atorvastatin Calcium 40 mg 06/16/24 09:00 06/17/24 08:18 Atorvastatin 40 Mg Tab PO 07/16/24 08:59 40 mg QAM BEST Administration Heparin Sodium/Dextrose 25,000 units in 500 mls @ 0 mls/hr 06/15/24 20:00 06/17/24 06:19 Heparin Sodium/Dextrose IV 07/15/24 19:59 0 units/hr .Q0M BEST 0 mls/hr Titration Protocol 0 UNITS/HR Lactated Ringer's 1,000 mls @ 75 mls/hr 06/16/24 23:30 06/16/24 23:32 Lr IV 07/16/24 23:29 75 mls/hr .[id number] BEST Administration Miscellaneous 1 each 06/16/24 08:59 06/17/24 08:16 Remove Nicoderm Patch N/A 07/16/24 08:58 Not Given DAILY@0859 BEST Nicotine 1 patch 06/15/24 20:10 06/17/24 08:17 Nicotine 21 Mg/24 Hr Tdsy TD 07/15/24 20:09 Not Given QAM BEST NPO Date Last Intake of Fluids: 06/16/24 Time Last Intake of Fluids: 23:00 Date Last Intake of Solids: 06/16/24 Time Last Intake of Solids: 22:00 Past Medical History PVD COPD + Tobacco smoker HLD HTN ASCVD Exercise / Class Metabolic Activity III < 4 Walking/Shop/Light housework Past Anesthesia History No Hx of Anesthesia Complications and No Family Hx of Anesthesia Complications History of PONV No Hx of PONV and No Hx of Motion Sickness Social History Smoking Status: Current every day smoker Hx Alcohol Use: Yes Alcohol type: wine alcohol intake frequency: a few times a week Hx Substance Use: No Physical Exam Vital Signs Last Vital Signs Temp 36.9 C 06/17/24 09:28 Pulse 60 06/17/24 09:28 Resp 20 06/17/24 09:28 BP 131/89 06/17/24 08:37 Pulse Ox 95 06/17/24 09:28 O2 Del Method Room Air 06/17/24 09:28 Constitutional no acute distress and not obese ENMT Mouth: + dentition abnormality, + dental caries, + poor dentition, + chipped teeth and + loose teeth Thyromental Distance: > or= 3.5 Finger Breadths Mallampati Class: II Neck normal visual inspection, trachea midline and + facial hair; neck extension not limited Respiratory normal respiratory effort Auscultation: + diminished lung sounds Cardiovascular Rate/Rhythm: regular rate and regular rhythm Heart Sounds: no murmur Vessels: no carotid bruit Musculoskeletal Spine: normal cervical ROM and no pain with cervical ROM Extremities: extremities normal to inspection; full ROM of extremities Neurologic moves all extremities Motor/Sensory: no sensory deficit Psychiatric Orientation: alert and oriented x 3 Testing Laboratory Results 06/16/24 05:35 06/17/24 05:22 PT 11.2 Seconds (9.0-12.0) 06/15/24 15:47 INR 1.0 (0.9-1.1) 06/15/24 15:47 APTT 27 Seconds (21-31) 06/15/24 15:47 Hemoglobin A1c 5.3 % (4.5-5.6) 06/16/24 05:35 Blood Type B Positive 06/16/24 15:47 Antibody Screen NEGATIVE 06/16/24 15:47 Electrocardiogram Date: 06/15/24 Findings: + NSR @ (@ 81;poss. lat infarct,age ?) Chest X-Ray Date: 06/15/24 Findings: + NAD Echocardiogram Date: 06/16/24 EF: 50% low normal LV Function: normal RWMA: + none Valvular Disease: + no significant valvular disease RV- mildly dilated
[2024-06-17 10:14] LABS: Partial Thromboplastin Time 28 Seconds (21-31)
[2024-06-17] MEDS: CLINDAMYCIN/D5W 900 MG/50 ML BAG IV SCH (10:47)
[2024-06-17] MEDS ORDERED: HEPARIN SOD (PORCINE) 1000 UNIT/ML ONE ×3 (11:19→15:14)
[2024-06-17] MEDS: LIDOCAINE 1% LOCAL 20 ML VIAL ONE (11:52)
[2024-06-17] MEDS: BUPIVACAINE/EPINEPHRINE 0.5% MPF 1:200,000 30 ML VIAL ONE (11:52)
[2024-06-17] MEDS: ceFAZolin 330 MG/ML 1 GM VIAL ONE (11:52)
[2024-06-17] MEDS ORDERED: PHENYLEPHRINE HCL 10 MG/ML VIAL ONE (12:17)
[2024-06-17] MEDS: SURGICEL ABSORB HEMOSTAT 2IN X 14IN TOP ONE (14:30)
[2024-06-17] MEDS ORDERED: LABETALOL HCL IV 5 MG/ML 20ML IV PRN (15:49)
[2024-06-17] MEDS ORDERED: ePHEDrine sulfate 50 MG/ML AMP IV PRN (15:49)
[2024-06-17] MEDS ORDERED: ONDANSETRON INJ 2 MG/ML 2 ML VIAL IV PRN (15:49)
[2024-06-17] MEDS ORDERED: ATROPINE SULFATE 0.1 MG/ML 10ML SYR IV PRN (15:49)
[2024-06-17] MEDS ORDERED: NALOXONE HCL 0.4 MG/1 ML VIAL/CARP IV PRN (15:49)
[2024-06-17] MEDS ORDERED: FLUMAZENIL 0.1 MG/1 ML 10 ML VIAL IV PRN (15:49)
[2024-06-17] MEDS ORDERED: PROMETHAZINE HCL 6.25 MG in SODIUM CHLORIDE 0.9% 50 ML IV PRN (15:49)
[2024-06-17] MEDS: FLOSEAL HEMOSTATIC MATRIX 10ML TOP ONE (16:49)
[2024-06-17] MEDS: GELATIN SPONGE SZ 100 ONE (16:50)
[2024-06-17] MEDS: HEPARIN SOD (PORCINE) 5,000 UNITS/ML VIAL ONE (16:51)
[2024-06-17] MEDS: PAPAVERINE HCL INJ 30 MG/ML 2 ML VIAL ONE (16:51)
[2024-06-17] MEDS: THROMBIN FOR SOLN 20000 UNIT KIT ONE (16:52)
[2024-06-17] MEDS: VISIPAQUE ONE (16:53)
--- NOTE | 2024-06-17 17:17 | Post Operative Brief Note ---
Immediate Post Op Note Date of Surgery June 17, 2024 Pre & Post Diagnosis Operation Date: 06/17/24 10:20 Pre-Op Diagnosis: Arterial occlusion, right lower extremity Post-Op Diagnosis: Arterial occlusion, right lower extremity I identified the patient and participated in the time-out.: Yes Procedure Operation Date: 06/17/24 10:20 Actual Procedures p Right Femoral to Posterior Tibial insitu bypass, vein patch, angioplasty of common femoral artery and distal bypass(Right) - Juan J Romero MD Surgeon Juan J Romero MD Strong Nitric Operator Ginger Laura MD; Marianne Dominguez PA-C Estimated Blood Loss 250 Findings See Below Right common femoral and superficial femoral thrombus after performing arteriotomy. We were unable to pass a Rianna catheter more than a few centimeters and were unable to pass a wire. Patient had PT as the main runoff to the right foot. Patent had a strong, multiphasic PT signal on the right foot at the end of the case. Specimens Right groin lymph node Right femoral artery thrombus Drains Fuller Catheter (16 Montenegrin 10mL balloon Fuller catheter was inserted prior to procedure start by Malika Winter RN) Anesthesia Type General Complications None Disposition Accompanied Patient To Recovery: Yes
--- NOTE | 2024-06-17 17:24 | Operative Report ---
Post Operative Report Pre & Post Diagnosis Operation Date: 06/17/24 10:20 Pre-Op Diagnosis: Arterial occlusion, right lower extremity Right lower extremity acute on chronic critical limb ischemia with blue toe syndrome of great toe Post-Op Diagnosis: Arterial occlusion, right lower extremity Right lower extremity acute on chronic critical limb ischemia with blue toe syndrome of great toe I identified the patient and participated in the time-out.: Yes Procedure Operation Date: 06/17/24 10:20 Actual Procedures p Right Femoral to Posterior Tibial insitu bypass, vein patch angioplasty of common femoral artery and distal bypass(Right) - Juan J Romero MD Surgeon Juan J Romero MD [employer] Teacher Ginger Laura MD; Marianne Dominguez PA-C Estimated Blood Loss 250 Findings See Below Right common femoral and superficial femoral thrombus after performing arteriotomy. We were unable to pass a Rianna catheter more than a few centimeters and were unable to pass a wire. Patient had PT as the main runoff to the right foot. Patent had a strong, multiphasic PT signal on the right foot at the end of the case. Fluids Fluoroscopy time: 3.9 minutes Contrast dose: 70cc Visipaque Radiation dose: 41 mGy Specimens #1 Right groin lymph node #2 Right femoral artery thrombus Drains Prevena wound vac -Right groin Anesthesia Type General Complications None Disposition Accompanied Patient To Recovery: Yes Indications 63 year old male patient with history of acute on chronic critical limb ischemia of the right lower extremity with discoloration/tissue loss of the right great toe. On CTA of the lower extremities, patient was found to have no visualized flow from the right common femoral artery at the takeoff of the profunda down to the tibioperoneal trunk, with partial reconstitution of AT and PT as the main runoff distally to the foot. We offered him a femoral to PT bypass with in situ great saphenous vein. After discussing risks and benefits, patient consented to the procedure. Description of Procedure The patient was taken to the operating room, placed in supine position. He was given general anesthesia and intubated without difficulty. A Fuller catheter was placed by nursing. His right lower extremity was prepped circumferentially up to the level of the umbilicus and sterile drapes were placed. A timeout was performed confirming the appropriate patient, procedure to be performed and laterality of the procedure. We first started with performing a longitudinal incision over the right femoral pulse. The skin was incised with scalpel and subcutaneous tissue divided with electrocautery. During our dissection of the soft tissue, there was a bundle of lymph nodes in the right groin that was hardened and had scar tissue surrounding it. This was ligated with 2-0 silk suture, amputated and sent to pathology. The femoral sheath was incised longitudinally with Metzenbaum scissors. The right common femoral artery, superficial femoral artery and profunda femoris artery were identified and vessel loops placed around them. We then turned our attention to the right femoral vein. We dissected medially to identify the saphenofemoral junction and then dissected out the proximal portion of the great saphenous vein. We tied off any branches with 2-0 Silk sutures. We then used a micropuncture kit to puncture the common femoral artery and placed a micropuncture sheath over a wire using the modified Seldinger technique. We performed an arteriogram of the right lower extremity and patient had minimal flow through femoropopliteal segment and tibioperoneal trunk with reconstitution of PT distally as the main runoff to the foot. At this point, we gave therapeutic dose of heparin, clamped the common femoral and profunda femoris arteries and maintained control of the superficial femoral artery with a vessel loop. We then performed an arteriotomy using a #11 blade and extended it with Miramontes scissors. Acute thrombus and stagnant appearing blood came out of the arteriotomy site. We took out the thrombus from the right common femoral artery and proximal superficial femoral artery. There was also calcification on the posterior wall of the common femoral artery and part of the wall adjacent to the profunda femoris artery. We removed part of the plaque being careful not to injure the profunda femoris and tacked down a residual flap with an interrupted 6-0 Prolene stitch. The proximal clamp was removed and p atient had excellent inflow. We passed a #5 Rianna catheter through our arteriotomy down the superficial femoral artery but we were only able to pass it down to the proximal portion of the thigh. We did get both acute and chronic appearing thrombus from this area. We attempted to pass our catheter further down but it wouldn't pass further down the distal SFA/popliteal artery. We then placed an 8F sheath inside our arteriotomy site and attempted to cross the superficial femoral artery/popliteal artery thrombus with a wire to perform over the wire thrombectomy. However, we were unable to cross with a wire even with the use of a QuickCross catheter. We then turned our attention to the lower leg. We made a longitudinal incision 2cm under the tibia taking care not to injure the great saphenous vein. We dissected out the great saphenous vein and tied off any branches with 2-0 silk sutures. This was deepened with the use of electrocautery and Metzenbaum scissors. We then dissected between the tibia and the soleus muscle to identify our popliteal vessels. We first encountered paired popliteal veins. We placed these on a Vessel loop to gently retract them downwards. We continued to dose our therapeutic heparin throughout the case. We turned our attention back to the right groin. We divided the great saphenous vein at the level of the saphenofemoral junction and the common femoral vein defect on the lateral aspect was oversewn with two layers of 5-0 prolene, first a running mattress followed by a baseball running stitch. We turned our attention back to the right femoral arteries. We clamped the superficial, common femoral and profunda femoris arteries. Then, we performed our common femoral/superficial femoral endarterectomy with a bovine pericardial patch sewn on with a running 5-0 prolene stitch after ensuring there were no flaps or further areas of intima that needed to be tacked down. Before finalizing the patch, we ensured that our clamps were removed and the artery flushed to ensure no air bubbles. We then put in our last stitch and tied off the anastomosis. We used thrombin gelfoam for hemostasis. Patient had an excellent right femoral pulse at this point. We then made a longitudinal incision over the bovine pericardial patch. We then beveled the proximal portion of the great saphenous vein and performed our proximal anastomosis with a 5-0 running Prolene suture onto the bovine pericardial patch. Any branches off the great saphenous vein were tied with 2-0 silk sutures. We obtained hemostasis of the right groin. We then turned our attention to the right calf were we already had dissected out our great saphenous vein. We used a LeMaitre valvulotome inserted from the great saphenous vein at the calf until we could feel the tip of the valvulotome at the level of the proximal anastomosis. We then pulled back slightly as to not injure the anastomosis, opened the valvulotome and carefully pulled back the valvulotome towards the calf. We did this twice to ensure all the valves had been cut as patient did not have brisk bleeding after the first time. We did notice at this point that the valvulotome had injured the vein at the level of the calf and there appeared to be a longitudinal tear on the side of the vein. We repaired this with a running 6-0 Prolene suture. We then placed two small angled Debakey clamps at the proximal and distal ends of the intended arteriotomy site of the PT artery. We performed our arteriotomy using a #11 blade and extended it with Miramontes scissors. We performed our anastomosis using a running 6-0 Prolene suture. We obtained hemostasis. We then irrigated this area with antibiotic solution, as well as the right groin. We performed an angiogram that showed two large branches at the level of the distal thigh as well as some narrowing were we had repaired our vein. We made two vertical incisions over the sites of the branches and these were tied off with 2-0 silk ties. We used a Doppler that confirmed that the area of repaired vein was hemodynamically significant. We decided to repair this with a bovine pericardial patch. We ensured the patient was still adequately heparinized. We used two bulldog clamps proximal and distal to the this area. We performed a longitudinal arteriotomy with a #11 blade and extended it with Miramontes scissors. We placed a bovine pericardial patch over this area in the same fashion as those described above using a 7-0 running Prolene suture. There were no areas of hemodynamically significant stenosis. We repeated a right lower extremity angiogram to confirm there were no other branches stealing off flow from the bypass and no areas of hemodynamically significant stenosis. Patient had an excellent triphasic PT signal. At this point, we irrigated both the proximal, mid thigh and distal incisions with antibiotic solution. We obtained hemostasis using a combination of Surgicel and electrocautery taking care not to injure the bypass. After hemostasis was achieved, we placed 5mL of Floseal at the femoral and 5mL at the PT artery anastomoses. All anastomoses appeared hemostatic. The incisions/soft tissue also appeared hemostatic at this point. We closed the proximal groin incision in multiple layers starting with 2-0 Vicryl followed by 3-0 Vicryl and then isaiah to approximate the skin edges. The mid thigh incisions were similarly approximated with 3-0 Vicryl taking care not to injure the bypass and the skin approximated with isaiah. We closed the calf incision in multiple layers using interrupted 3-0 Vicryl to approximate the deeper tissue and not leave empty space but taking care not to compress the bypass. We then closed the dermal layer with a running 3-0 Vicryl, followed by reapproximation of the skin with isaiah. A sterile Prevena wound vac was placed over the right groin incision. The mid thigh and calf incisions were covered with sterile, dry gauze and tape. Patient tolerated the procedure very well. All counts were correct at the end of the case. Patient was taken to recovery in stable condition. He retained a multiphasic PT signal of the right foot in PACU. Dr Romero was present and scrubbed for all critical portions of the case. I attest to the content of the Intraoperative Record and any orders documented therein. Any exceptions are noted below.
[2024-06-17] MEDS: fentaNYL citrate PF 100 MCG/2 ML VIAL IV PRN (17:31)
--- NOTE | 2024-06-17 17:47 | Anesthesiology Progress Note ---
Date of Service June 17, 2024 Anesthesia Post Procedure Vital Signs Vital Signs: Temp Pulse Pulse Pulse Resp BP BP 06/17/24 17:20 36 C L 100 H 14 129/84 101/53 L 06/17/24 10:56 52 L 06/17/24 09:28 36.9 C 60 20 06/17/24 08:37 36.6 C 59 L 18 131/89 06/17/24 02:23 36.7 C 58 L 18 06/16/24 22:46 36.9 C 66 18 123/78 06/16/24 21:51 64 06/16/24 19:49 36.8 C 60 16 131/82 06/16/24 19:30 BP Pulse Ox O2 Del Method O2 Flow Rate 06/17/24 17:20 95 Oxymask 5 06/17/24 10:56 06/17/24 09:28 95 Room Air 06/17/24 08:37 98 Room Air 06/17/24 02:23 138/89 97 Room Air 06/16/24 22:46 93 Room Air 06/16/24 21:51 06/16/24 19:49 96 Room Air 06/16/24 19:30 Room Air Pain Intensity Right Leg: Pain Intensity: 0 Transfer of Care Handoff Completed per policy Notes Mental Status: alert / awake / arousable Patient Amnestic to Procedure: Yes Nausea / Vomiting: adequately controlled Pain: adequately controlled Airway Patency, RR, SpO2: stable & adequate BP & HR: stable & adequate Hydration State: stable & adequate Anesthetic Complications: no major complications apparent
[2024-06-17] MEDS: HYDROmorphone INJ 1 MG/ML SYRINGE IV PRN (17:51)
[2024-06-17] MEDS: LACTATED RINGER'S 1,000 ML IV SCH (18:42)
[2024-06-17 19:15] LABS: Basophils # (auto) 0.04 K/uL (0.00-0.20); Basophils % (auto) 0.3 %; Eosinophils # (auto) 0.01 K/uL (0.00-0.50); Eosinophils % (auto) 0.1 %; Hemoglobin 13.5 g/dl (14.0-18.0); Immature Granulocytes # (auto) 0.05 K/uL (0.01-0.20); Immature Granulocytes % (auto) 0.3 %; Lymphocytes # (auto) 1.75 K/uL (1.20-3.40); Lymphocytes % (auto) 11.4 %; Mean Corpuscular Hemoglobin 29.3 pg (25.0-34.0); Mean Corpuscular Hgb Conc 33.8 g/dL (32.0-36.0); Mean Corpuscular Volume 86.8 fL (80.0-100.0); Mean Platelet Volume 9.3 fL (9.4-12.4); Monocytes # (auto) 0.65 K/uL (0.11-0.59); Monocytes % (auto) 4.2 %; Neutrophils # (auto) 12.84 K/uL (1.40-6.50); Neutrophils % (auto) 83.7 %; Platelet Count 220 K/uL (130-400); RDW Coefficient of Variation 14.5 % (11.5-14.5); RDW Standard Deviation 46.4 fL (36.4-46.3); Red Blood Count 4.61 M/uL (4.70-6.10); White Blood Count 15.34 K/ul (4.8-10.8)
[2024-06-17] MEDS: CLINDAMYCIN/D5W 600 MG/50 ML BAG IV SCH (19:55)
[2024-06-17] MEDS: MAGNESIUM SULFATE / D5W 1 GM/100 ML BAG IV ONE (19:55)
[2024-06-17] MEDS: MoRPHine SULFATE 4 MG/ML 1 ML CARP\\VIAL IV PRN (20:00)
--- NOTE | 2024-06-17 20:08 | Critical Care Consultation ---
Date of Consultation June 17, 2024 Assessment & Plan (1) Arterial occlusion, lower extremity: 63-year-old male presents to the ICU postop following acute on chronic arterial occlusion of the right lower extremity and underwent Right femoral to posterior tibial bypass with vein patch and angioplasty of common femoral artery and distal bypass. - Defer further management to vascular surgery - ASA, statin - Morphine, Percocet as needed (2) Tobacco use disorder: Encouraged cessation. Nicotine patch as needed (3) Hyperlipidemia: Continue statin Supervising Physician Co-Signing Physician Notes Patient seen and examined. EMR reviewed. Discussed with critical care STAR and agree with assessment plan as noted. Please refer to my progress note from 06/18 for additional details History of Present Illness Attending Physician: Alireza Biggs MD History of Present Illness Patient is a 63-year-old male with PMH of HTN and tobacco abuse who presented to the emergency department on 06/16 after he had undergone outpatient arterial Dopplers revealing acute arterial inclusions in the right lower extremity. Patient had been having progressive numbness and neurogenic pain to the right lower extremity for a few months prior to presenting to his PCP, And was only able to walk short distances. Patient was evaluated by vascular surgery and taken to the OR on 06/21 arterial occlusion of the right lower extremity with right lower extremity acute on chronic critical limb ischemia and he underwent right femoral to posterior tibial bypass with vein patch and angioplasty of common femoral artery and distal bypass. He now presents to the ICU postop. On arrival to the ICU the patient is alert and oriented and hemodynamically stable. His only complaint at this time is pain at the surgical site to the right lower extremity. He denies recent illness or fevers, headaches, dizziness, cough or congestion, shortness of breath, chest pain, abdominal pain, nausea vomiting or diarrhea. Patient to remain in ICU overnight following surgical procedure. Allergies Allergy/AdvReac Type Severity Reaction Status Date / Time Penicillins Allergy Unknown Verified 06/15/24 19:50 Home Medications Medication Instructions Recorded Confirmed Type citalopram 10 mg tablet 10 mg PO DAILY 06/16/24 06/16/24 History lisinopril 5 mg tablet 5 mg PO DAILY 06/16/24 06/16/24 History Patient History Social History Smoking Status: Current every day smoker Tobacco Type: Cigarettes Hx Alcohol Use: Yes Alcohol type: wine Hx Substance Use: No Preferred Language: Ivorian Communication Ability: Effective Fork Lift Technician Required: No Beliefs That Will Affect Care: None Current Living Situation: Alone Feels Safe at Home: Yes Safety Concerns: Feels Safe At This Time Assistive Devices: None Review of Systems Review of Systems: All systems reviewed & are unremarkable except as noted in HPI & below Physical Exam Constitutional: cooperative and comfortable Eyes: PERRL, conjunctivae normal, anicteric sclerae ENMT: external ear and nose normal, oropharynx normal Neck: trachea midline, no thyromegaly Respiratory: normal respiratory effort, lungs clear to auscultation Cardiovascular: RRR, no murmur, no edema Heart Sounds: normal S1 and normal S2; no murmur Gastrointestinal (Abdomen): normal bowel sounds, soft, nontender, no hepatosplenomegaly Musculoskeletal: no cyanosis or clubbing, extremities motor strength 5/5 Skin: Surgical dressings to the right groin and right lower extremity without significant swelling or edema. Right foot is cool to touch, But otherwise skin is warm and dry. Neurologic: Patient is able to move right lower extremity, does report dulled sensation. Neurological exam otherwise normal Psychiatric: A+Ox3, euthymic affect Results & Data Results & Data Vital Signs (Past 12 Hours) Vital Signs Temp Pulse Pulse Pulse Resp BP BP 06/17/24 18:42 78 16 130/71 06/17/24 18:10 37.2 C 78 17 118/77 06/17/24 18:00 78 17 116/74 06/17/24 17:50 86 13 131/79 06/17/24 17:40 104 H 13 124/83 06/17/24 17:30 118 H 13 102/84 06/17/24 17:20 36 C L 100 H 14 129/84 06/17/24 10:56 52 L 06/17/24 09:28 36.9 C 60 20 06/17/24 08:37 36.6 C 59 L 18 131/89 BP Pulse Ox O2 Del Method O2 Flow Rate 06/17/24 18:42 96 Room Air 06/17/24 18:10 107/55 L 93 Room Air 06/17/24 18:00 93 Room Air 06/17/24 17:50 112/67 91 Room Air 06/17/24 17:40 124/68 93 Room Air 06/17/24 17:30 93/56 L 97 Oxymask 5 06/17/24 17:20 101/53 L 95 Oxymask 5 06/17/24 10:56 06/17/24 09:28 95 Room Air 06/17/24 08:37 98 Room Air Coding Level of Care Code 72064 IN/OBS CONSULT LVL 2,35M Diagnoses Arterial occlusion, lower extremity I70.209 Tobacco use disorder F17.200 Mixed hyperlipidemia E78.2 Hyperlipidemia type: mixed hyperlipidemia Time Spent (min) 40 (3) Hyperlipidemia Hyperlipidemia type: mixed hyperlipidemia Qualified Code(s): E78.2 - Mixed hyperlipidemia
[2024-06-18] MEDS ORDERED: Heparin IV Adult Wt-Based Standard *NO* INITIAL Bolus Protocol IV STA (04:10)
[2024-06-18 05:00] LABS: Basophils # (auto) 0.03 K/uL (0.00-0.20); Basophils % (auto) 0.2 %; Eosinophils # (auto) 0.07 K/uL (0.00-0.50); Eosinophils % (auto) 0.6 %; Hematocrit (blood only) 36.2 % (42.0-52.0); Immature Granulocytes # (auto) 0.05 K/uL (0.01-0.20); Immature Granulocytes % (auto) 0.4 %; Lymphocytes % (auto) 17.6 %; Mean Corpuscular Hemoglobin 29.1 pg (25.0-34.0); Mean Corpuscular Hgb Conc 33.1 g/dL (32.0-36.0); Mean Corpuscular Volume 87.7 fL (80.0-100.0); Mean Platelet Volume 9.5 fL (9.4-12.4); Monocytes # (auto) 0.87 K/uL (0.11-0.59); Monocytes % (auto) 6.9 %; Neutrophils # (auto) 9.31 K/uL (1.40-6.50); Neutrophils % (auto) 74.3 %; Platelet Count 213 K/uL (130-400); RDW Coefficient of Variation 14.6 % (11.5-14.5); RDW Standard Deviation 46.9 fL (36.4-46.3); Red Blood Count 4.13 M/uL (4.70-6.10); White Blood Count 12.53 K/ul (4.8-10.8)
[2024-06-18 05:05] LABS: Calcium 8.8 mg/dl (8.6-10.3); Est GFR (African American) 113.5 ml/min; Est GFR (Non-African American) 97.9 ml/min; Magnesium 1.9 mg/dl (1.7-2.4); Potassium 3.7 mmol/L (3.5-5.1)
[2024-06-18] MEDS: HEPARIN SODIUM/DEXTROSE 25,000 UNITS/500 ML BAG IV SCH (05:14)
[2024-06-18 05:17] LABS: INR 1.1 (0.9-1.1); Partial Thromboplastin Time 27 Seconds (21-31); Prothrombin Time 11.5 Seconds (9.0-12.0)
[2024-06-18] MEDS: MAGNESIUM SULFATE / D5W 1 GM/100 ML BAG IV ONE (06:56)
[2024-06-18] MEDS: POTASSIUM CHLORIDE CRTAB 20 MEQ TABCR PO STA (06:57)
--- NOTE | 2024-06-18 08:01 | Critical Care Progress Note ---
Date of Service June 18, 2024 Assessment & Plan (1) Arterial occlusion, lower extremity: (2) PAD (peripheral artery disease): (3) Hyperlipidemia: (4) Tobacco use disorder: Plan Impression: 63-year-old male smoker with peripheral artery disease status post femoral bypass grafting. He had some numbness in his foot and is on heparin currently. Pulses remain dopplerable and palpable. Recommendations: 1. Peripheral artery disease status post femoral bypass graft on the right. Doing well clinically. On heparin. Defer management to vascular surgery. 2. Smoking abstinence recommended. 3. Mild leukocytosis improving. Will follow clinically. Anemia stable without need for transfusion. 4. Activity per vascular surgery. Disposition per vascular surgery. The patient's critical care issues have resolved. Critical care will sign off. Feel free to contact us if our assistance is required. Admission and Anticipated Discharge Date Admission Date: June 15, 2024 Subjective Patient seen and examined. EMR reviewed. Discussed with critical care [facility] and with bedside critical care nurse. Patient is doing well clinically. He is get some numbness on his right foot but pulses remain palpable and dopplerable. Capillary refill is good. He is also had intermittent numbness and pain in his left toes as well and may have small vessel disease. He has been hemodynamically stable. He wants to eat this morning. Review of Systems Review of Systems: All systems reviewed & are unremarkable except as noted in Subjective Physical Exam Constitutional: WD/WN, vitals as above Neck: trachea midline, no thyromegaly Respiratory: normal respiratory effort, lungs clear to auscultation Cardiovascular: RRR, no murmur, no edema Palpable tibialis anterior and dorsalis pedis pulses bilaterally. Good capillary refill. Both lower extremities are warm to touch Gastrointestinal (Abdomen): normal bowel sounds, soft, nontender, no hepatosplenomegaly Musculoskeletal: Extremities: extremities normal to inspection Skin: no rashes, warm and dry Neurologic: Nonfocal exam Lymphatic: no cervical lymphadenopathy Results & Data Results & Data Vital Signs (Past 12 Hours) Vital Signs Temp Pulse Resp BP Pulse Ox Pulse Ox O2 Del Method 06/18/24 07:00 Room Air 06/18/24 06:03 69 12 93 06/18/24 05:30 112/67 06/18/24 05:30 66 12 94 06/18/24 05:00 120/74 06/18/24 05:00 120/74 06/18/24 04:54 70 23 96 06/18/24 04:18 70 18 96 06/18/24 03:30 123/75 06/18/24 03:30 123/75 06/18/24 03:21 74 18 96 06/18/24 03:00 36.8 C 116/70 06/18/24 03:00 116/70 06/18/24 03:00 63 12 94 06/18/24 02:39 69 18 96 06/18/24 02:30 113/75 06/18/24 02:30 113/75 06/18/24 02:21 64 12 95 06/18/24 02:03 64 12 93 06/18/24 02:00 115/75 06/18/24 01:51 64 15 95 06/18/24 01:30 64 12 94 06/18/24 01:30 107/69 06/18/24 01:30 107/69 06/18/24 01:06 64 10 L 94 06/18/24 01:00 113/70 06/18/24 00:42 67 12 95 06/18/24 00:30 119/64 06/18/24 00:30 119/64 06/18/24 00:30 76 23 94 06/18/24 00:00 64 06/18/24 00:00 36.8 C 110/65 06/17/24 23:59 96 06/17/24 23:57 69 12 94 06/17/24 23:45 68 13 92 06/17/24 23:36 66 13 93 06/17/24 23:30 105/67 06/17/24 23:21 69 12 92 06/17/24 23:15 68 14 93 06/17/24 23:06 67 13 93 06/17/24 23:00 117/71 06/17/24 23:00 117/71 06/17/24 22:42 68 14 93 06/17/24 22:36 66 13 93 06/17/24 22:30 110/67 06/17/24 22:30 110/67 06/17/24 22:15 68 14 94 06/17/24 22:01 114/68 06/17/24 22:01 114/68 06/17/24 22:00 70 17 95 06/17/24 21:54 73 8 L 95 06/17/24 21:45 92 06/17/24 21:42 73 14 94 06/17/24 21:31 119/66 06/17/24 21:31 119/66 06/17/24 21:30 72 18 95 06/17/24 21:00 112/82 06/17/24 21:00 112/82 06/17/24 20:45 82 17 93 06/17/24 20:42 73 11 L 94 06/17/24 20:30 116/79 06/17/24 20:30 116/79 06/17/24 20:24 75 13 91 06/17/24 20:03 83 19 94 06/17/24 20:01 112/71 06/17/24 20:01 36.4 C L 112/71 O2 Del Method 06/18/24 07:00 06/18/24 06:03 06/18/24 05:30 06/18/24 05:30 06/18/24 05:00 06/18/24 05:00 06/18/24 04:54 06/18/24 04:18 06/18/24 03:30 06/18/24 03:30 06/18/24 03:21 06/18/24 03:00 06/18/24 03:00 06/18/24 03:00 06/18/24 02:39 06/18/24 02:30 06/18/24 02:30 06/18/24 02:21 06/18/24 02:03 06/18/24 02:00 06/18/24 01:51 06/18/24 01:30 06/18/24 01:30 06/18/24 01:30 06/18/24 01:06 06/18/24 01:00 06/18/24 00:42 06/18/24 00:30 06/18/24 00:30 06/18/24 00:30 06/18/24 00:00 06/18/24 00:00 06/17/24 23:59 Room Air 06/17/24 23:57 06/17/24 23:45 06/17/24 23:36 06/17/24 23:30 06/17/24 23:21 06/17/24 23:15 06/17/24 23:06 06/17/24 23:00 06/17/24 23:00 06/17/24 22:42 06/17/24 22:36 06/17/24 22:30 06/17/24 22:30 06/17/24 22:15 06/17/24 22:01 06/17/24 22:01 06/17/24 22:00 06/17/24 21:54 06/17/24 21:45 06/17/24 21:42 06/17/24 21:31 06/17/24 21:31 06/17/24 21:30 06/17/24 21:00 06/17/24 21:00 06/17/24 20:45 06/17/24 20:42 06/17/24 20:30 06/17/24 20:30 06/17/24 20:24 06/17/24 20:03 06/17/24 20:01 06/17/24 20:01 Critical Care Results & Data Vital Signs (Past 12 Hours) Vital Signs Temp Pulse Resp BP Pulse Ox Pulse Ox O2 Del Method 06/18/24 07:00 Room Air 06/18/24 06:03 69 12 93 06/18/24 05:30 112/67 06/18/24 05:30 66 12 94 06/18/24 05:00 120/74 06/18/24 05:00 120/74 06/18/24 04:54 70 23 96 06/18/24 04:18 70 18 96 06/18/24 03:30 123/75 06/18/24 03:30 123/75 06/18/24 03:21 74 18 96 06/18/24 03:00 36.8 C 116/70 06/18/24 03:00 116/70 06/18/24 03:00 63 12 94 06/18/24 02:39 69 18 96 06/18/24 02:30 113/75 06/18/24 02:30 113/75 06/18/24 02:21 64 12 95 06/18/24 02:03 64 12 93 06/18/24 02:00 115/75 06/18/24 01:51 64 15 95 06/18/24 01:30 64 12 94 06/18/24 01:30 107/69 06/18/24 01:30 107/69 06/18/24 01:06 64 10 L 94 06/18/24 01:00 113/70 06/18/24 00:42 67 12 95 06/18/24 00:30 119/64 06/18/24 00:30 119/64 06/18/24 00:30 76 23 94 06/18/24 00:00 64 06/18/24 00:00 36.8 C 110/65 06/17/24 23:59 96 06/17/24 23:57 69 12 94 06/17/24 23:45 68 13 92 06/17/24 23:36 66 13 93 06/17/24 23:30 105/67 06/17/24 23:21 69 12 92 06/17/24 23:15 68 14 93 06/17/24 23:06 67 13 93 06/17/24 23:00 117/71 06/17/24 23:00 117/71 06/17/24 22:42 68 14 93 06/17/24 22:36 66 13 93 06/17/24 22:30 110/67 06/17/24 22:30 110/67 06/17/24 22:15 68 14 94 06/17/24 22:01 114/68 06/17/24 22:01 114/68 06/17/24 22:00 70 17 95 06/17/24 21:54 73 8 L 95 06/17/24 21:45 92 06/17/24 21:42 73 14 94 06/17/24 21:31 119/66 06/17/24 21:31 119/66 06/17/24 21:30 72 18 95 06/17/24 21:00 112/82 06/17/24 21:00 112/82 06/17/24 20:45 82 17 93 06/17/24 20:42 73 11 L 94 06/17/24 20:30 116/79 06/17/24 20:30 116/79 06/17/24 20:24 75 13 91 06/17/24 20:03 83 19 94 O2 Del Method 06/18/24 07:00 06/18/24 06:03 06/18/24 05:30 06/18/24 05:30 06/18/24 05:00 06/18/24 05:00 06/18/24 04:54 06/18/24 04:18 06/18/24 03:30 06/18/24 03:30 06/18/24 03:21 06/18/24 03:00 06/18/24 03:00 06/18/24 03:00 06/18/24 02:39 06/18/24 02:30 06/18/24 02:30 06/18/24 02:21 06/18/24 02:03 06/18/24 02:00 06/18/24 01:51 06/18/24 01:30 06/18/24 01:30 06/18/24 01:30 06/18/24 01:06 06/18/24 01:00 06/18/24 00:42 06/18/24 00:30 06/18/24 00:30 06/18/24 00:30 06/18/24 00:00 06/18/24 00:00 06/17/24 23:59 Room Air 06/17/24 23:57 06/17/24 23:45 06/17/24 23:36 06/17/24 23:30 06/17/24 23:21 06/17/24 23:15 06/17/24 23:06 06/17/24 23:00 06/17/24 23:00 06/17/24 22:42 06/17/24 22:36 06/17/24 22:30 06/17/24 22:30 06/17/24 22:15 06/17/24 22:01 06/17/24 22:01 06/17/24 22:00 06/17/24 21:54 06/17/24 21:45 06/17/24 21:42 06/17/24 21:31 06/17/24 21:31 06/17/24 21:30 06/17/24 21:00 06/17/24 21:00 06/17/24 20:45 06/17/24 20:42 06/17/24 20:30 06/17/24 20:30 06/17/24 20:24 06/17/24 20:03 Lab & Micro Results (Past 24 Hours) RBC 4.13 M/uL (4.70-6.10) L 06/18/24 WBC 12.53 K/ul (4.8-10.8) H 06/18/24 Hgb 12.0 g/dl (14.0-18.0) L 06/18/24 Hct 36.2 % (42.0-52.0) L 06/18/24 MCV 87.7 fL (80.0-100.0) 06/18/24 MCH 29.1 pg (25.0-34.0) 06/18/24 MCHC 33.1 g/dL (32.0-36.0) 06/18/24 RDW Standard Deviation 46.9 fL (36.4-46.3) H 06/18/24 RDW Coefficient of Variation 14.6 % (11.5-14.5) H 06/18/24 Plt Count 213 K/uL (130-400) 06/18/24 MPV 9.5 fL (9.4-12.4) 06/18/24 Neutrophils (%) (Auto) 74.3 % 06/18/24 Lymphocytes (%) (Auto) 17.6 % 06/18/24 Monocytes # (Auto) 0.87 K/uL (0.11-0.59) H 06/18/24 Eosinophils # (Auto) 0.07 K/uL (0.00-0.50) 06/18/24 Immature Granulocyte % (Auto) 0.4 % 06/18/24 Neutrophils # (Auto) 9.31 K/uL (1.40-6.50) H 06/18/24 Lymphocytes # (Auto) 2.20 K/uL (1.20-3.40) 06/18/24 Monocytes # (Auto) 0.87 K/uL (0.11-0.59) H 06/18/24 Eosinophils # (Auto) 0.07 K/uL (0.00-0.50) 06/18/24 Basophils # (Auto) 0.03 K/uL (0.00-0.20) 06/18/24 Immature Granulocyte # (Auto) 0.05 K/uL (0.01-0.20) 4 Na 135 mmol/L (136-145) L 06/18/24 K 3.7 mmol/L (3.5-5.1) 06/18/24 Cl 104 mmol/L (98-107) 06/18/24 CO2 25 mmol/L (21-32) 06/18/24 Anion Gap 6 (3-11) 06/18/24 BUN 10 mg/dl (6-23) 06/18/24 Creatinine 0.77 mg/dl (0.6-1.4) 06/18/24 Estimated GFR ( Amer) 113.5 ml/min 06/18/24 Estimated GFR (Non-Af Amer) 97.9 ml/min 06/18/24 BUN/Creatinine Ratio 13.0 (10-20) 06/18/24 Glu 130 mg/dl (70-99(Fasting)) H 06/18/24 Ca 8.8 mg/dl (8.6-10.3) 06/18/24 Mg 1.9 mg/dl (1.7-2.4) 06/18/24 04:25 Calcium Level 8.8 mg/dl (8.6-10.3) 06/18/24 04:25 Prothromb Time International Ratio 1.1 (0.9-1.1) 06/18/24 04:2 5 I & O Totals 24 Hours 06/17/24 06/18/24 06/19/24 06:59 06:59 06:59 Intake Total 1508.267 / 8624.099 2092.267 / 4745.267 Output Total 2885 / 2885 Balance 1508.267 / 4699.488 0597.267 / 1860.267 Cumulative 06/15/24 15:34 thru 06/18/24 06:51 Intake Total 6545.201 Output Total 2885 Balance 3660.201 RT Ventilator Mngmt (Last Documented) Ventilator Ordered Settings Respiratory Rate 12 06/18/24 06:03 Ventilator - PT Measurements Respiratory Rate 12 Coding Level of Care Code 30390 SUB INP/OBS CARE 2/35MIN Diagnoses Arterial occlusion, lower extremity I70.209 PAD (peripheral artery disease) I73.9 Mixed hyperlipidemia E78.2 Hyperlipidemia type: mixed hyperlipidemia Tobacco use disorder F17.200 (3) Hyperlipidemia Hyperlipidemia type: mixed hyperlipidemia Qualified Code(s): E78.2 - Mixed hyperlipidemia
--- NOTE | 2024-06-18 08:55 | Surgery Progress Note ---
Date of Service June 18, 2024 Assessment & Plan (1) Arterial occlusion, lower extremity: Plan: Patient POD#1 from a right fem PT in situ. Excellent flow to foot. He does however have numbness of the right foot which may be chronic. Will start OT\PT and transfer to floor Admission and Anticipated Discharge Date Admission Date: June 15, 2024 Subjective Patient complaining of right foot numbness but no pain. Physical Exam Constitutional: WD/WN, vitals as above Respiratory: normal respiratory effort; no respiratory distress Cardiovascular: Rate/Rhythm: regular rate and regular rhythm Vessels: posterior tibial pulses present (excellent doppler on right) Extremities: normal capillary refill Neurologic: CN's II-XI intact bilaterally and moves all extremities Motor/Sensory: + sensory deficit (decrease sensation right foot) Psychiatric: A+Ox3, euthymic affect Results & Data Vital Signs (Past 12 Hours) Vital Signs Temp Pulse Resp BP Pulse Ox Pulse Ox O2 Del Method 06/18/24 07:00 Room Air 06/18/24 06:03 69 12 93 06/18/24 05:30 112/67 06/18/24 05:30 66 12 94 06/18/24 05:00 120/74 06/18/24 05:00 120/74 06/18/24 04:54 70 23 96 06/18/24 04:18 70 18 96 06/18/24 03:30 123/75 06/18/24 03:30 123/75 06/18/24 03:21 74 18 96 06/18/24 03:00 36.8 C 116/70 06/18/24 03:00 116/70 06/18/24 03:00 63 12 94 06/18/24 02:39 69 18 96 06/18/24 02:30 113/75 06/18/24 02:30 113/75 06/18/24 02:21 64 12 95 06/18/24 02:03 64 12 93 06/18/24 02:00 115/75 06/18/24 01:51 64 15 95 06/18/24 01:30 64 12 94 06/18/24 01:30 107/69 06/18/24 01:30 107/69 06/18/24 01:06 64 10 L 94 06/18/24 01:00 113/70 06/18/24 00:42 67 12 95 06/18/24 00:30 119/64 06/18/24 00:30 119/64 06/18/24 00:30 76 23 94 06/18/24 00:00 64 06/18/24 00:00 36.8 C 110/65 06/17/24 23:59 96 06/17/24 23:57 69 12 94 06/17/24 23:45 68 13 92 06/17/24 23:36 66 13 93 06/17/24 23:30 105/67 06/17/24 23:21 69 12 92 06/17/24 23:15 68 14 93 06/17/24 23:06 67 13 93 06/17/24 23:00 117/71 06/17/24 23:00 117/71 06/17/24 22:42 68 14 93 06/17/24 22:36 66 13 93 06/17/24 22:30 110/67 06/17/24 22:30 110/67 06/17/24 22:15 68 14 94 06/17/24 22:01 114/68 06/17/24 22:01 114/68 06/17/24 22:00 70 17 95 06/17/24 21:54 73 8 L 95 06/17/24 21:45 92 06/17/24 21:42 73 14 94 06/17/24 21:31 119/66 06/17/24 21:31 119/66 06/17/24 21:30 72 18 95 06/17/24 21:00 112/82 06/17/24 21:00 112/82 O2 Del Method 06/18/24 07:00 06/18/24 06:03 06/18/24 05:30 06/18/24 05:30 06/18/24 05:00 06/18/24 05:00 06/18/24 04:54 06/18/24 04:18 06/18/24 03:30 06/18/24 03:30 06/18/24 03:21 06/18/24 03:00 06/18/24 03:00 06/18/24 03:00 06/18/24 02:39 06/18/24 02:30 06/18/24 02:30 06/18/24 02:21 06/18/24 02:03 06/18/24 02:00 06/18/24 01:51 06/18/24 01:30 06/18/24 01:30 06/18/24 01:30 06/18/24 01:06 06/18/24 01:00 06/18/24 00:42 06/18/24 00:30 06/18/24 00:30 06/18/24 00:30 06/18/24 00:00 06/18/24 00:00 06/17/24 23:59 Room Air 06/17/24 23:57 06/17/24 23:45 06/17/24 23:36 06/17/24 23:30 06/17/24 23:21 06/17/24 23:15 06/17/24 23:06 06/17/24 23:00 06/17/24 23:00 06/17/24 22:42 06/17/24 22:36 06/17/24 22:30 06/17/24 22:30 06/17/24 22:15 06/17/24 22:01 06/17/24 22:01 06/17/24 22:00 06/17/24 21:54 06/17/24 21:45 06/17/24 21:42 06/17/24 21:31 06/17/24 21:31 06/17/24 21:30 06/17/24 21:00 06/17/24 21:00
--- NOTE | 2024-06-18 09:29 | Hospitalist Progress Note ---
Date of Service June 18, 2024 Assessment & Plan (1) Arterial occlusion, lower extremity: (2) PAD (peripheral artery disease): (3) Hyperlipidemia: (4) Tobacco use disorder: Plan 63-year-old male with past medical history of tobacco use disorder who presented to [facility] ED on 06/15/2024 after outpatient bilateral artery Dopplers showed findings concerning for acute arterial occlusion in the right lower extremity. Patient has been experiencing intermittent claudication symptoms for over 2 months. #Right SFA and popliteal artery occlusion #Peripheral arterial disease #Hyperlipidemia Vascular surgery Dr. Romero saw the patient CTA showed occluded right SFA and popliteal artery in the right lower extremity and no flow-limiting stenosis or arterial occlusion in the left lower extremity Total cholesterol is 297, LDL is 219, triglycerides 190 A1c is 5.3 Patient underwent Right Femoral to Posterior Tibial insitu bypass, vein patch, angioplasty of common femoral artery and distal bypass(Right) by Dr. Romero on 06/17/2024 Continue atorvastatin 40 mg p.o. nightly He is currently on heparin infusion per vascular surgery and as per vascular surgery, heparin infusion to stop tomorrow and he will be transition to apixaban 5 mg p.o. twice daily Continue aspirin 81 mg p.o. daily: I spoke with Dr. Romero from vascular surgery via secure chat and he advised patient continue aspirin 81 mg daily in addition to anticoagulation with apixaban Neurovascular checks every 4 hours Postop care per vascular surgery Awaiting postop PT/OT Await further vascular surgery recommendations regarding discharge #Tobacco use disorder Smoking cessation counseling provided Continue nicotine replacement patch CODE STATUS: Full code DVT prophylaxis: Patient on heparin infusion Discharge planning based on PT/OT and vascular surgery recommendations Care plan discussed with patient, nursing staff Admission and Anticipated Discharge Date Admission Date: June 15, 2024 Subjective Patient seen and examined He is status post right femoral bypass yesterday with Dr. Romero and was monit ored in ICU overnight He has transfer orders to go to the floor He is currently on heparin infusion He denies any chest pain, shortness of breath, dizziness, lightheadedness, fever, chills Complaining of pain in right lower extremity at surgical site and numbness in his right foot which vascular surgery is aware of Denies any nausea, vomiting, diarrhea or abdominal pain. No bowel movement in 5 days Review of Systems Review of Systems: As per HPI Physical Exam Physical Exam: General: No acute distress Psych: Awake and alert HEENT: Anicteric sclera, moist oral mucosa CVS: Regular rate and rhythm Lungs: Bilateral air entry, no wheezing noted Abdomen: Soft, nontender, no rebound, no guarding Ext: Right lower extremity dressing in place, no edema noted Neuro: No focal motor deficits noted Results & Data Results & Data Vital Signs (Past 12 Hours) Vital Signs Temp Pulse Resp BP Pulse Ox Pulse Ox O2 Del Method 06/18/24 09:03 77 15 122/85 94 Room Air 06/18/24 08:00 69 17 110/68 94 Room Air 06/18/24 07:00 73 17 111/71 94 Room Air 06/18/24 07:00 Room Air 06/18/24 06:03 69 12 93 06/18/24 05:30 112/67 06/18/24 05:30 66 12 94 06/18/24 05:00 120/74 06/18/24 05:00 120/74 06/18/24 04:54 70 23 96 06/18/24 04:18 70 18 96 06/18/24 03:30 123/75 06/18/24 03:30 123/75 06/18/24 03:21 74 18 96 06/18/24 03:00 36.8 C 116/70 06/18/24 03:00 116/70 06/18/24 03:00 63 12 94 06/18/24 02:39 69 18 96 06/18/24 02:30 113/75 06/18/24 02:30 113/75 06/18/24 02:21 64 12 95 06/18/24 02:03 64 12 93 06/18/24 02:00 115/75 06/18/24 01:51 64 15 95 06/18/24 01:30 64 12 94 06/18/24 01:30 107/69 06/18/24 01:30 107/69 06/18/24 01:06 64 10 L 94 06/18/24 01:00 113/70 06/18/24 00:42 67 12 95 06/18/24 00:30 119/64 06/18/24 00:30 119/64 06/18/24 00:30 76 23 94 06/18/24 00:00 64 06/18/24 00:00 36.8 C 110/65 06/17/24 23:59 96 06/17/24 23:57 69 12 94 06/17/24 23:45 68 13 92 06/17/24 23:36 66 13 93 06/17/24 23:30 105/67 06/17/24 23:21 69 12 92 06/17/24 23:15 68 14 93 06/17/24 23:06 67 13 93 06/17/24 23:00 117/71 06/17/24 23:00 117/71 06/17/24 22:42 68 14 93 06/17/24 22:36 66 13 93 06/17/24 22:30 110/67 06/17/24 22:30 110/67 06/17/24 22:15 68 14 94 06/17/24 22:01 114/68 06/17/24 22:01 114/68 06/17/24 22:00 70 17 95 06/17/24 21:54 73 8 L 95 06/17/24 21:45 92 06/17/24 21:42 73 14 94 06/17/24 21:31 119/66 06/17/24 21:31 119/66 06/17/24 21:30 72 18 95 O2 Del Method 06/18/24 09:03 06/18/24 08:00 06/18/24 07:00 06/18/24 07:00 06/18/24 06:03 06/18/24 05:30 06/18/24 05:30 06/18/24 05:00 06/18/24 05:00 06/18/24 04:54 06/18/24 04:18 06/18/24 03:30 06/18/24 03:30 06/18/24 03:21 06/18/24 03:00 06/18/24 03:00 06/18/24 03:00 06/18/24 02:39 06/18/24 02:30 06/18/24 02:30 06/18/24 02:21 06/18/24 02:03 06/18/24 02:00 06/18/24 01:51 06/18/24 01:30 06/18/24 01:30 06/18/24 01:30 06/18/24 01:06 06/18/24 01:00 06/18/24 00:42 06/18/24 00:30 06/18/24 00:30 06/18/24 00:30 06/18/24 00:00 06/18/24 00:00 06/17/24 23:59 Room Air 06/17/24 23:57 06/17/24 23:45 06/17/24 23:36 06/17/24 23:30 06/17/24 23:21 06/17/24 23:15 06/17/24 23:06 06/17/24 23:00 06/17/24 23:00 06/17/24 22:42 06/17/24 22:36 06/17/24 22:30 06/17/24 22:30 06/17/24 22:15 06/17/24 22:01 06/17/24 22:01 06/17/24 22:00 06/17/24 21:54 06/17/24 21:45 06/17/24 21:42 06/17/24 21:31 06/17/24 21:31 06/17/24 21:30 Laboratory Results Laboratory Results - last 24 hr 06/16/24 06/17/24 06/17/24 15:47 09:32 18:56 WBC 15.34 H RBC 4.61 L Hgb 13.5 L Hct 40.0 L MCV 86.8 MCH 29.3 MCHC 33.8 RDW Std Deviation 46.4 H RDW Coeff of Robert 14.5 Plt Count 220 MPV 9.3 L Immature Gran % (Auto) 0.3 Neut % (Auto) 83.7 Lymph % (Auto) 11.4 [place] % (Auto) 4.2 Eos % (Auto) 0.1 Baso % (Auto) 0.3 Neut # (Auto) 12.84 H Lymph # (Auto) 1.75 [place] # (Auto) 0.65 H Eos # (Auto) 0.01 Baso # (Auto) 0.04 Immature Gran # (Auto) 0.05 PT 11.0 INR 1.0 APTT 28 PTT Ratio 1.0 Sodium Potassium Chloride Carbon Dioxide Anion Gap BUN Creatinine Est Cr Clr Drug Dosing Est GFR ( Amer) Est GFR (Non-Af Amer) BUN/Creatinine Ratio Glucose Calcium Magnesium Crossmatch See Detail 06/18/24 04:25 WBC 12.53 H RBC 4.13 L Hgb 12.0 L Hct 36.2 L MCV 87.7 MCH 29.1 MCHC 33.1 RDW Std Deviation 46.9 H RDW Coeff of Robert 14.6 H Plt Count 213 MPV 9.5 Immature Gran % (Auto) 0.4 Neut % (Auto) 74.3 Lymph % (Auto) 17.6 [place] % (Auto) 6.9 Eos % (Auto) 0.6 Baso % (Auto) 0.2 Neut # (Auto) 9.31 H Lymph # (Auto) 2.20 [place] # (Auto) 0.87 H Eos # (Auto) 0.07 Baso # (Auto) 0.03 Immature Gran # (Auto) 0.05 PT 11.5 INR 1.1 APTT 27 PTT Ratio 1.0 Sodium 135 L Potassium 3.7 Chloride 104 Carbon Dioxide 25 Anion Gap 6 BUN 10 Creatinine 0.77 Est Cr Clr Drug Dosing 104.0 Est GFR ( Amer) 113.5 Est GFR (Non-Af Amer) 97.9 BUN/Creatinine Ratio 13.0 Glucose 130 H Calcium 8.8 Magnesium 1.9 Crossmatch PG Care Time/CCT Total # of Minutes Spent Total Time Spent with Patient: Total time spent is greater than 50% in coordination of care (as documented) at patient's floor/unit and/or counseling patient: Coding Level of Care Code 03660 SUB INP/OBS CARE 2/35MIN Diagnoses Arterial occlusion, lower extremity I70.209 PAD (peripheral artery disease) I73.9 Mixed hyperlipidemia E78.2 Hyperlipidemia type: mixed hyperlipidemia Tobacco use disorder F17.200 (3) Hyperlipidemia Hyperlipidemia type: mixed hyperlipidemia Qualified Code(s): E78.2 - Mixed hyperlipidemia
[2024-06-18] MEDS: POLYETHYLENE (MIRALAX) 17 GM PACK PO SCH (09:44)
[2024-06-18] MEDS: oxyCODONE/ACETAMINOPHEN 5mg/325mg TAB PO PRN (10:28)
[2024-06-18 12:02] LABS: ANTI-Xa, UFH(UnfractionatedHep 0.22 IU/ml (0.3-0.7)
[2024-06-18] MEDS: MAGNESIUM HYDROXIDE SUSP 30 ML UDC PO ONE (18:41)
[2024-06-18 18:47] LABS: ANTI-Xa, UFH(UnfractionatedHep 0.32 IU/ml (0.3-0.7)
[2024-06-18] MEDS: SENNA 8.6 MG TAB PO SCH (20:46)
[2024-06-19 06:52] LABS: Basophils # (auto) 0.04 K/uL (0.00-0.20); Basophils % (auto) 0.4 %; Eosinophils # (auto) 0.31 K/uL (0.00-0.50); Eosinophils % (auto) 3.4 %; Hematocrit (blood only) 35.7 % (42.0-52.0); Immature Granulocytes # (auto) 0.03 K/uL (0.01-0.20); Immature Granulocytes % (auto) 0.3 %; Lymphocytes # (auto) 2.51 K/uL (1.20-3.40); Lymphocytes % (auto) 27.3 %; Mean Corpuscular Hemoglobin 29.2 pg (25.0-34.0); Mean Corpuscular Hgb Conc 33.6 g/dL (32.0-36.0); Mean Corpuscular Volume 86.9 fL (80.0-100.0); Mean Platelet Volume 9.5 fL (9.4-12.4); Monocytes # (auto) 0.76 K/uL (0.11-0.59); Monocytes % (auto) 8.3 %; Neutrophils # (auto) 5.56 K/uL (1.40-6.50); Neutrophils % (auto) 60.3 %; Platelet Count 231 K/uL (130-400); RDW Coefficient of Variation 14.5 % (11.5-14.5); RDW Standard Deviation 46.5 fL (36.4-46.3); Red Blood Count 4.11 M/uL (4.70-6.10); White Blood Count 9.21 K/ul (4.8-10.8)
[2024-06-19 07:12] LABS: ANTI-Xa, UFH(UnfractionatedHep 0.29 IU/ml (0.3-0.7)
[2024-06-19 07:28] LABS: BUN Creatinine Ratio 15.4 (10-20); Creatinine Clr Calc Pharmacy 133.6 ml/min; Est GFR (African American) 121.7 ml/min; Magnesium 2.1 mg/dl (1.7-2.4); Potassium 4.1 mmol/L (3.5-5.1)
[2024-06-19] MEDS: APIXABAN 5 MG TABLET PO SCH (07:56)
[2024-06-19] MEDS: HEPARIN STOP ORDER ONE (12:36)
--- NOTE | 2024-06-19 13:38 | Hospitalist Progress Note ---
Date of Service June 19, 2024 Assessment & Plan (1) Arterial occlusion, lower extremity: (2) PAD (peripheral artery disease): (3) Hyperlipidemia: (4) Tobacco use disorder: Plan 63-year-old male with past medical history of tobacco use disorder who presented to [facility] ED on 06/15/2024 after outpatient bilateral artery Dopplers showed findings concerning for acute arterial occlusion in the right lower extremity. Patient has been experiencing intermittent claudication symptoms for over 2 months. #Right SFA and popliteal artery occlusion #Peripheral arterial disease #Hyperlipidemia Vascular surgery Dr. Romero saw the patient CTA showed occluded right SFA and popliteal artery in the right lower extremity and no flow-limiting stenosis or arterial occlusion in the left lower extremity Total cholesterol is 297, LDL is 219, triglycerides 190 A1c is 5.3 Patient underwent Right Femoral to Posterior Tibial insitu bypass, vein patch, angioplasty of common femoral artery and distal bypass(Right) by Dr. Romero on 06/17/2024 Continue atorvastatin 40 mg p.o. nightly Heparin infusion was stopped today and he was transitioned to apixaban 5 mg p.o. twice daily by vascular surgery Continue aspirin 81 mg p.o. daily: I spoke with Dr. Romero from vascular surgery via secure chat on 06/18/2024 and he advised patient continue aspirin 81 mg daily in addition to anticoagulation with apixaban Neurovascular checks every 4 hours Postop care per vascular surgery Await further vascular surgery recommendations regarding discharge #Tobacco use disorder Smoking cessation counseling provided Continue nicotine replacement patch #Constipation Continue MiraLAX plus senna And milk of magnesia CODE STATUS: Full code DVT prophylaxis: Patient on apixaban Discharge planning Home with home health services based on PT/OT recommendations and awaiting vascular surgery recommendations: Hopefully can be discharged on 06/20/2024 Care plan discussed with patient, nursing staff Admission and Anticipated Discharge Date Admission Date: June 15, 2024 Subjective Patient seen and examined Still no bowel movement Pain is under better control Numbness is slightly improved He has been transitioned from IV heparin to oral apixaban by vascular surgery He denies any chest pain, shortness of breath, nausea, vomiting abdominal pain. He is tolerating oral diet without any issues Review of Systems Review of Systems: As per HPI Physical Exam Physical Exam: General: No acute distress Psych: Awake and alert HEENT: Anicteric sclera, moist oral mucosa CVS: Regular rate and rhythm Lungs: Bilateral air entry, no wheezing noted Abdomen: Soft, nontender, no rebound, no guarding Ext: Right lower extremity dressing in place, no edema noted Neuro: No focal motor deficits noted Results & Data Results & Data Vital Signs (Past 12 Hours) Vital Signs Temp Pulse Resp BP Pulse Ox O2 Del Method 06/19/24 07:39 36.8 C 62 18 141/87 H 97 Room Air Laboratory Results Laboratory Results - last 24 hr 06/18/24 06/19/24 18:07 06:33 WBC 9.21 RBC 4.11 L Hgb 12.0 L Hct 35.7 L MCV 86.9 MCH 29.2 MCHC 33.6 RDW Std Deviation 46.5 H RDW Coeff of Robert 14.5 Plt Count 231 MPV 9.5 Immature Gran % (Auto) 0.3 Neut % (Auto) 60.3 Lymph % (Auto) 27.3 Gila % (Auto) 8.3 Eos % (Auto) 3.4 Baso % (Auto) 0.4 Neut # (Auto) 5.56 Lymph # (Auto) 2.51 Gila # (Auto) 0.76 H Eos # (Auto) 0.31 Baso # (Auto) 0.04 Immature Gran # (Auto) 0.03 Heparin Anti-Xa, Unfract 0.32 0.29 L Sodium 138 Potassium 4.1 Chloride 105 Carbon Dioxide 28 Anion Gap 5 BUN 10 Creatinine 0.65 Est Cr Clr Drug Dosing 133.6 Est GFR ( Amer) 121.7 Est GFR (Non-Af Amer) 105.0 BUN/Creatinine Ratio 15.4 Glucose 96 Calcium 9.0 Magnesium 2.1 PG Care Time/CCT Total # of Minutes Spent Total Time Spent with Patient: Total time spent is greater than 50% in coordination of care (as documented) at patient's floor/unit and/or counseling patient: Coding Level of Care Code 64452 SUB INP/OBS CARE 2/35MIN Diagnoses Arterial occlusion, lower extremity I70.209 PAD (peripheral artery disease) I73.9 Mixed hyperlipidemia E78.2 Hyperlipidemia type: mixed hyperlipidemia Tobacco use disorder F17.200 (3) Hyperlipidemia Hyperlipidemia type: mixed hyperlipidemia Qualified Code(s): E78.2 - Mixed hyperlipidemia
[2024-06-19] MEDS: MAGNESIUM HYDROXIDE SUSP 30 ML UDC PO ONE (14:04)
[2024-06-19 21:17] VITALS: RESP 16
[2024-06-20 07:13] LABS: Hematocrit (blood only) 38.3 % (42.0-52.0); Mean Corpuscular Hemoglobin 29.3 pg (25.0-34.0); Mean Corpuscular Hgb Conc 33.9 g/dL (32.0-36.0); Mean Corpuscular Volume 86.3 fL (80.0-100.0); Mean Platelet Volume 9.5 fL (9.4-12.4); Platelet Count 288 K/uL (130-400); RDW Coefficient of Variation 14.3 % (11.5-14.5); RDW Standard Deviation 45.4 fL (36.4-46.3); Red Blood Count 4.44 M/uL (4.70-6.10); White Blood Count 9.95 K/ul (4.8-10.8)
[2024-06-20 07:35] LABS: Albumin Globulin Ratio 1.2 (0.9-2); BUN Creatinine Ratio 15.1 (10-20); Bilirubin,Total 0.9 mg/dl (0.2-1.0); Calcium 9.5 mg/dl (8.6-10.3); Creatinine Clr Calc Pharmacy 117.5 ml/min; Est GFR (African American) 115.2 ml/min; Est GFR (Non-African American) 99.4 ml/min; Globulin 3.4 gm/dl (2.5-4.0); Magnesium 2.1 mg/dl (1.7-2.4); Potassium 4.3 mmol/L (3.5-5.1); Total Protein 7.4 gm/dl (6.0-8.3)
[2024-06-20 07:41] VITALS: O2SAT 97
[2024-06-20 07:44] VITALS: BP 108/71; PULSE 62; TEMP 98.6
--- NOTE | 2024-06-20 09:05 | Surgery Progress Note ---
Date of Service June 20, 2024 Assessment & Plan (1) Arterial occlusion, lower extremity: Plan: Patient POD#3 from a right fem PT in situ. Excellent flow to foot. He does however have numbness of the BLE which may be chronic. Will order lumbar spine MRI to eval since pt has hx of injury/back problems. Continue PT/OT. Likely d/c per medical team when rehab or home arrangements are made. 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 Pt states pain well controlled. Has been ambulating to BR and in hallway with walker. No new complaints. Review of Systems Review of Systems: All systems reviewed & are unremarkable except as noted in HPI & below Physical Exam Constitutional: WD/WN, vitals as above Respiratory: normal respiratory effort, lungs clear to auscultation normal respiratory effort; no respiratory distress Cardiovascular: RRR, no murmur, no edema Rate/Rhythm: regular rate and regular rhythm Vessels: posterior tibial pulses present (excellent doppler on right) and dorsalis pedis pulses present (palp on left, none on right) Extremities: normal capillary refill Gastrointestinal (Abdomen): normal bowel sounds, soft, nontender, no hepatosplenomegaly Skin: + pallor (right foot); no hair thinning (normal hair growth of feet) Neurologic: CN's II-XI intact bilaterally and moves all extremities Motor/Sensory: + sensory deficit (decrease sensation right foot) Psychiatric: A+Ox3, euthymic affect Results & Data Vital Signs (Past 12 Hours) Vital Signs Temp Pulse Resp BP BP Pulse Ox O2 Del Method 06/20/24 07:40 37.0 C 62 16 108/71 97 Room Air 06/19/24 21:16 36.8 C 62 16 108/74 96 Room Air
--- NOTE | 2024-06-20 12:02 | Discharge Summary ---
Discharge Summary Date of Service June 20, 2024 Principal Dx & Hospital Course #1 = Principal Diagnosis (1) Arterial occlusion, lower extremity: The patient presented with a painful right lower extremity due to occluded right superficial femoral artery and occluded right popliteal artery. He subsequently had right lower extremity bypass surgery performed by vascular surgery on June 17. Currently postoperative day #3. He has chronic paresthesia involving both lower extremities. Surgery service has ordered a lumbar MRI scan which is pending. Overall he is stable and will be discharged home today, June 20, on Eliquis, aspirin, and atorvastatin. He will use [place] as needed for pain. He will follow-up with vascular surgery as an outpatient (2) PAD (peripheral artery disease): He is now on Eliquis, aspirin, atorvastatin. Tobacco use cessation is highly recommended (3) Hyperlipidemia: Continue atorvastatin 40 mg daily (4) Tobacco use disorder: Tobacco use cessation is highly recommended Plan Home today, June 20. Follow-up with vascular surgery and primary care provider as an outpatient as soon as possible Admission HPI Per Admitting Provider Marco Antonio a 63-year-old male with a past medical history significant for hypertension, tobacco abuse, who presented to the [facility] ED on 06/15/2024 after outpatient bilateral arterial Dopplers revealed findings concerning for acute arterial occlusion in the right lower extremity. Patient remained stable while in the ED. The labs were significant for leukocytosis of 13 with neutrophil predominance of 8. Outpatient bilateral lower extremity arterial Dopplers obtained today (06/15/2024) were read as occlusions of the right superficial femoral artery and dorsalis pedis artery and additional areas of dampened flow bilaterally as described. The need for CTA or conventional angiography should be determined clinically. The ED did speak with Dr. Romero who confirmed that he will see the patient tomorrow and is available for surgical intervention if needed. Dr. Romero recommended starting the patient on anticoagulation overnight until he can evaluate him tomorrow. Prior to admission the patient was ordered to start on heparin drip. Patient was sitting in bed in no acute distress at time of exam. Explains that he has been experiencing bilateral lower extremity paresthesias, pain, and significant pain/cramping with ambulation worsened right lower extremity than left over the past 3 to 6 months. States that his right calf has become significantly smaller than the left over this time as well. Will experience numbness and tingling in the bilateral feet/toes at times. Had been using Tylenol for the pain without improvement. Has smoked approximately a pack per day of cigarettes for the past 36 years, drinks 2 to 3 glasses of wine approximately 3 times a week, denies recreational drug use. States that he was told his cholesterol is high recently but has not started a statin yet. When asked about any prescription medications he states that he is currently not on any as he does not like to take medication. However, he states he will begin medications to prevent further complications of vascular disease. Pain is currently under control at rest. She understands that he may require surgical intervention and that we will obtain additional imaging tonight for further assessment. Denies a history of major bleeding and states that his only medication allergies are to penicillins. He is a full code would want his sister to make medical decisions for him if he cannot make them himself. Please refer to Dr. Zaidi's attestation for any changes to the treatment plan Discharge Exam General-alert and oriented x3, no fever, no chills HEENT-head atraumatic and normocephalic, pupils equal and reactive to light, extraocular muscles intact Neck-no lymphadenopathy or thyromegaly, trachea midline Chest-clear to auscultation. No rales, wheezing or rhonchi Cardiac-regular rate and rhythm, normal S1 and S2 Abdomen-normal bowel sounds, no hepatosplenomegaly Extremities-no cyanosis, clubbing, or edema Neuro-cranial nerves II through XII intact, motor and sensory function within normal limits, strength symmetrical, no focal deficits Psych-normal affect, normal mood Discharge Plan Discharge Items Patient Disposition: Home - Self-Care Reason For Visit: RIGHT LOWER EXTREMITY ARTERIAL OCCLUSION Discharge Diagnosis: Peripheral arterial insufficiency with occluded right superficial femoral artery and occluded right popliteal artery Activity: Per Instructions section Activity Comment: Ambulation as tolerated Non-emergency contact: Primary Care Provider and Surgeon Call non-emergency contact if: you have any medication questions and your symptoms worsen Follow-up/Referrals: Myles Stapleton [Primary Care Provider] - 06/27/24 10:00 am Diet: Regular and Heart Healthy Addtl Attending Provider Instructions: New medications include Eliquis, aspirin, and atorvastatin. Use [place] pain medication as needed for pain. Follow-up with primary care provider and surgeon as soon as possible Pending Studies at Discharge: Yes Studies:: Lumbar MRI scan report Stand-Alone Forms: My [facility], Smoking Cessation Medications and DC Order Prescriptions: New atorvastatin 40 mg Tablet 40 mg PO QAM Qty: 30 0RF Eliquis 5 mg Tablet 5 mg PO BID Qty: 60 0RF hydrocodone-acetaminophen 5-325 mg tablet 1 tab PO Q6H PRN (Reason: pain) Qty: 20 0RF aspirin 81 mg Tablet,Delayed Release (Dr/Ec) 81 mg PO DAILY Qty: 0 0RF Continued citalopram 10 mg tablet 10 mg PO DAILY lisinopril 5 mg tablet 5 mg PO DAILY Discharge Orders: Discharge Order (Routine); Ordered 06/20/24 Ordered By: Wilner Donnelly Admission Data Admit Date/Time: 06/15/24 19:46 Attending Provider: Wilner Donnelly Admit Provider: Say Zaidi Primary Care Provider: Myles Stapleton Other Providers: Say Zaidi; Juan J Romero; Basil Tomas; William Ortega; Emre Grant; Javad Acosta; Warren Greenwood; Ashley Blackman; Reno Caceres; Jennyfer Flowers; Nydia Del Real; Deadnre Brown; Yunior Orosco; Edilia Díaz Hospital Stay Data Consultations 06/15/24 19:34 ED Decision to Admit Stat 06/15/24 20:05 Consult Vascular Surgery Routine 06/17/24 18:10 Consult Correspondent Routine Procedures Performed Operation Date: 06/17/24 10:20 Actual Procedures p Right Femoral to Posterior Tibial insitu bypass, vein patch, angioplasty of common femoral artery and distal bypass(Right) - Juan J Romero MD Diagnostic Imagining Performed 06/15/24 20:02 CTA abd aorta runof w con [CT ang AA runof w inc wo ifdon] Stat 06/16/24 07:40 US venous mapping LE RT Routine 06/17/24 07:08 EV angio LE RT Routine 06/20/24 09:05 MRI Lumbar Spine [MR lumbar spine wo con] Routine Pending Results Patient Have Any Pending Studies at Discharge: Yes Discharge Instructions Given to Patient (Per Discharging Provider) New medications include Eliquis, aspirin, and atorvastatin. Use [place] pain medication as needed for pain. Follow-up with primary care provider and surgeon as soon as possible Total Time Total Time Spent Total Time Spent (In Minutes): 45 minutes Coding Level of Care Code 77032 INP/OBS DISCH >30 MIN Diagnoses Arterial occlusion, lower extremity I70.209 PAD (peripheral artery disease) I73.9 Mixed hyperlipidemia E78.2 Hyperlipidemia type: mixed hyperlipidemia Tobacco use disorder F17.200
--- NOTE | 2024-06-20 13:14 | Magnetic Resonance Report ---
MR lumbar spine wo con CLINICAL HISTORY: leg numbness TECHNIQUE: Multiplanar sequences through the lumbar spine were obtained, without intravenous contrast . Comparison: None available at the time of this dictation. FINDINGS: Multilevel degenerative changes are seen in the endplates with extensive disc space narrowing as well . L1-L2: No significant abnormality. L2-L3: No significant abnormality. L3-L4: No significant abnormality. L4-L5: Facet arthropathy is seen with mild bilateral neuroforaminal stenosis. L5-S1: Facet arthropathy is seen with mild right and moderate left neuroforaminal stenosis. The spinal ligaments are intact, without evidence of disruption or abnormal signal intensity. The spi nal cord is normal in signal intensity and there is no evidence of cord contusion. There is no eviden ce of an extradural, intradural, extramedullary or intramedullary lesion. Visualized soft tissues are normal. IMPRESSION: Multilevel degenerative changes with up to mild right and moderate left neuroforaminal stenosis. ACT 112: Negative or not required by law. Electronically signed by: Jesus Alberto Padgett M.D. 06/20/2024 1:13 PM
== END 2024-06-20 15:20 | disposition home health service (06) | DRG 253 ==
LOC: ED 15:34 → SUATTDRO 19:46 → 2N 19:46 → 1E 06-17 17:30 → 3W 06-18 12:07